=== PATIENT | female | born 1940 | race African-American/Black ===

== ENCOUNTER 2017-10-31 15:01 | Inpatient (IN) | payer OTHER ==
[~2017-10-31] VITALS: Ht 160 cm; Wt 72.8 kg
[~2017-10-31 15:01] MED LIST: SERT25TA; SIMV20TA6; TRAZADONE
[2017-10-31] MEDS ORDERED: NITROGLYCERIN 0.4MG TABLET SL SL PRN (15:30)
[2017-10-31] MEDS ORDERED: ASPIRIN 81MG TABLET PO ONE (15:30)
[2017-10-31 17:03] LABS: BASOPHILS % 0.2 % (0.0-2.0); EOSINOPHILS % 1.1 % (0.0-5.0); HEMATOCRIT. 37.8 % (36.0-48.0); HEMOGLOBIN. 12.5 g/dL (12.0-16.0); MEAN CORPUSCULAR HEMOGLOBIN 29.3 pg (28.0-32.0); MEAN CORPUSCULAR VOLUME 88.9 fL (81.0-99.0); MEAN PLATELET VOLUME 9.8 fl (7.4-10.4); MONOCYTES % 4.9 % (2.0-8.0); NEUTROPHILS % 70.8 % (40.0-76.0); PLATELET 197 x1000/uL (130-400); RED BLOOD CELL COUNT 4.25 mill/uL (4.2-5.4); RED CELL DISTRIBUTION WIDTH 14.8 % (11.6-14.6)
[2017-10-31 17:06] LABS: CHLORIDE 101 mEq/L (98-107)
[2017-10-31] MEDS ORDERED: POTASSIUM CHLORIDE INJ 40 MEQ in DEXT 5% WATER 250 ML IV ONE (17:30)
[2017-10-31] MEDS ORDERED: POTASSIUM CHLORIDE 20MEQ TABLET SR PO ONE (17:30)
[2017-10-31] MEDS ORDERED: DIPHENHYDRAMINE 50MG/ML VIAL IV PRN (20:00)
[2017-10-31] MEDS ORDERED: MAGNESIUM 2 G PREMIX 50 ML IV PRN (20:00)
[2017-10-31] MEDS ORDERED: MECLIZINE 25MG TABLET PO PRN (20:00)
[2017-10-31] MEDS ORDERED: ONDANSETRON HCL 4MG/2ML VIAL IV PRN (20:00)
[2017-10-31] MEDS ORDERED: MAGNESIUM/ALUMINUM HYDROXIDE/SIMETHICONE 30ML UDC PO PRN (20:00)
[2017-10-31] MEDS ORDERED: CLONIDINE 0.1MG TABLET PO PRN (20:00)
[2017-10-31 20:10] VITALS: BP 156/81
[2017-10-31 20:20] VITALS: BP 156/81
[2017-10-31] MEDS ORDERED: ASPI-1159 MT (21:31)
[2017-10-31] MEDS ORDERED: OXYC-515 MT (21:31)
[2017-10-31] MEDS ORDERED: MULT-1146 MT (21:31)
[2017-10-31] MEDS ORDERED: MELO-106 MT (21:31)
[2017-10-31] MEDS ORDERED: SERT-112 MT (21:34)
[2017-10-31] MEDS ORDERED: SIMV40TA5 MT (21:34)
[2017-10-31] MEDS ORDERED: DEXTROSE 50% WATER 50ML SYRINGE IV PRN (21:45)
[2017-10-31] MEDS: ACETAMINOPHEN 325MG TABLET PO PRN (22:21)
[2017-10-31] MEDS: ATORVASTATIN CALCIUM 20MG TABLET PO SCH (22:21)
[2017-10-31] MEDS: SODIUM CHLORIDE 0.9% INJ 3ML FLUSH IVF SCH (22:22)
[2017-10-31] MEDS: ENOXAPARIN 40MG/0.4ML SYR SUBCUT SCH (22:25)
[2017-11-01] VITALS: BP 153/80
[2017-11-01] MEDS: ACETAMINOPHEN 325MG TABLET PO PRN ×2 (03:37→17:30)
[2017-11-01 04:00] VITALS: BP 157/84
[2017-11-01] MEDS ORDERED: PNEUMOCOCCAL 23-VAL P-SAC VAC 0.5 ML IM ONE (06:00)
[2017-11-01] MEDS: BLOOD SUGAR DIAGNOSTIC STRIP TEST SCH ×4 (06:15→21:12)
[2017-11-01] MEDS: INSULIN LISPRO 100 UNITS/ML SUBCUT SCH ×4 (06:15→21:23)
[2017-11-01] MEDS: SODIUM CHLORIDE 0.9% INJ 3ML FLUSH IVF SCH ×3 (06:15→21:24)
[2017-11-01 07:02] LABS: *AMPHETAMINES SCREEN URINE NEGATIVE (NEGATIVE); *BARBITURATES SCREEN URINE NEGATIVE (NEGATIVE); *BENZODIAZEPINES SCREEN URINE NEGATIVE (NEGATIVE); *COCAINE SCREEN URINE NEGATIVE (NEGATIVE)
[2017-11-01 07:03] LABS: CANNABINOID URINE SCREEN NEGATIVE (NEGATIVE); METHADONE URINE SCREEN NEGATIVE (NEGATIVE); OPIATES URINE SCREEN NEGATIVE (NEGATIVE); PHENCYCLIDINE URINE SCREEN NEGATIVE (NEGATIVE)
[2017-11-01 08:00] VITALS: BP_SYST 150; BP_SYST 162; BP_SYST 172; BP_DIAS 80; BP_DIAS 83; BP_DIAS 87
[2017-11-01 08:24] LABS: BASOPHILS % 0.4 % (0.0-2.0); EOSINOPHILS % 1.1 % (0.0-5.0); HEMATOCRIT. 35.3 % (36.0-48.0); HEMOGLOBIN. 11.6 g/dL (12.0-16.0); MEAN CORPUSCULAR HEMOGLOBIN 29.6 pg (28.0-32.0); MEAN CORPUSCULAR VOLUME 89.7 fL (81.0-99.0); MEAN PLATELET VOLUME 9.4 fl (7.4-10.4); MONOCYTES % 6.7 % (2.0-8.0); NEUTROPHILS % 66.8 % (40.0-76.0); PLATELET 185 x1000/uL (130-400); RED BLOOD CELL COUNT 3.93 mill/uL (4.2-5.4); RED CELL DISTRIBUTION WIDTH 14.9 % (11.6-14.6)
[2017-11-01 08:37] LABS: CHLORIDE 105 mEq/L (98-107)
[2017-11-01] MEDS: ASPIRIN 81MG TABLET PO SCH (09:52)
[2017-11-01] MEDS: MELOXICAM 7.5MG TABLET PO SCH (09:53)
[2017-11-01] MEDS: SERTRALINE HCL 100MG TABLET PO SCH (09:53)
[2017-11-01 12:00] VITALS: BP 173/85
[2017-11-01 18:00] VITALS: BP 140/77
[2017-11-01 20:00] VITALS: BP_SYST 135; BP_SYST 172; BP_DIAS 66; BP_DIAS 79
[2017-11-01] MEDS ORDERED: MEDICATION NOT ON FORMULARY EA (Simvastatin 1 TAB) MT SCH (21:00)
[2017-11-01] MEDS: ATORVASTATIN CALCIUM 20MG TABLET PO SCH (21:16)
[2017-11-01] MEDS: ENOXAPARIN 40MG/0.4ML SYR SUBCUT SCH (21:17)
[2017-11-02] VITALS: BP 105/68
[2017-11-02] MEDS: ACETAMINOPHEN 325MG TABLET PO PRN ×2 (00:39→07:05)
[2017-11-02 04:00] VITALS: BP 164/86
[2017-11-02] MEDS: BLOOD SUGAR DIAGNOSTIC STRIP TEST SCH ×3 (06:02→16:55)
[2017-11-02] MEDS: SODIUM CHLORIDE 0.9% INJ 3ML FLUSH IVF SCH ×2 (06:02→16:56)
[2017-11-02] MEDS: INSULIN LISPRO 100 UNITS/ML SUBCUT SCH ×3 (06:18→16:55)
[2017-11-02 08:00] VITALS: BP 178/83
[2017-11-02] MEDS: ASPIRIN 81MG TABLET PO SCH (08:30)
[2017-11-02] MEDS: MELOXICAM 7.5MG TABLET PO SCH (08:30)
[2017-11-02] MEDS: SERTRALINE HCL 100MG TABLET PO SCH (08:31)
[2017-11-02] MEDS ORDERED: HYDROCODONE/ACETAMINOPHEN 5/325MG TABLET PO PRN (11:45)
[2017-11-02 12:00] VITALS: BP 134/68
[2017-11-02 16:00] VITALS: BP 157/86
[2017-11-02 18:39] VITALS: BP 157/86
== END 2017-11-02 19:23 | disposition short-term general hospital (02) | DRG 313 ==
LOC: ER 15:01 → 5WST 17:42 → EDBEDREQ 17:44 → EDBEDREQTM 17:44 → ENRESERV 18:54
PROVIDERS: ADMIT Internal Medicine; ATTEND Internal Medicine
DX: R07.89 Other chest pain (principal); E43 Unspecified severe protein-calorie malnutrition; F32.9 Major depressive disorder, single episode, unspecified; M19.90 Unspecified osteoarthritis, unspecified site; E11.9 Type 2 diabetes mellitus without complications; E78.00 Pure hypercholesterolemia, unspecified; E87.6 Hypokalemia; I11.9 Hypertensive heart disease without heart failure; Z85.828 Personal history of other malignant neoplasm of skin; Z86.73 Personal history of transient ischemic attack (TIA), and cerebral infarction without residual deficits; Z87.891 Personal history of nicotine dependence; Z79.82 Long term (current) use of aspirin; Z91.81 History of falling; Z79.899 Other long term (current) drug therapy; Z79.1 Long term (current) use of non-steroidal anti-inflammatories (NSAID); Z68.28 Body mass index [BMI] 28.0-28.9, adult
CPT/HCPCS: 36415; 71045; 80048; 80053; 80305; 82962; 83036; 83735; 83880; 84443; 84484; 85025; 85610; 90732; 93005; 96365; 97162; 99285; J1650; J1815; J3480; J7040; J7060

== ENCOUNTER 2018-01-05 23:21 | Emergency (ER) | payer OTHER, MEDICARE ==
[~2018-01-05] VITALS: Ht 162.6 cm; Wt 72.0 kg
[~2018-01-05 23:21] MED LIST changes: +ASPI-1159 MT; +MELO-106 MT; +MULT-1146 MT; +OXYC-105 MT; +SERT-112 MT; -SERT25TA; -SIMV20TA6; +SIMV40TA5 MT; -TRAZADONE
[2018-01-06] MEDS ORDERED: TETANUS, DIPHTHERIA, PERTUSSIS VAC/PF 0.5ML (>7YR OLD) IM ONE (00:30)
[2018-01-06] MEDS ORDERED: ACETAMINOPHEN 325MG TABLET PO ONE (00:30)
[2018-01-06] MEDS ORDERED: LIDOCAINE HCL/EPINEPHRINE 1%-EPI 1:100,000 20 ML VIAL INFIL ONE (03:45)
[2018-01-06] MEDS ORDERED: BACITRACIN ZINC OINT UDPKT TOP ONE (05:00)
[2018-01-06 05:25] VITALS: BP 143/71
== END 2018-01-06 05:25 | disposition home or self-care (01) ==
LOC: ER 23:21
DX: S81.822A Laceration with foreign body, left lower leg, initial encounter (principal); W25.XXXA Contact with sharp glass, initial encounter; Y93.89 Activity, other specified; Y92.090 Kitchen in other non-institutional residence as the place of occurrence of the external cause; I10 Essential (primary) hypertension; Z23 Encounter for immunization
CPT/HCPCS: 12002; 73590; 90471; 90715; 99284; J3490

== ENCOUNTER 2018-02-01 21:35 | Emergency (ER) | payer MEDICARE, OTHER ==
[~2018-02-01] VITALS: Ht 170.2 cm; Wt 81.0 kg
[2018-02-01 22:57] LABS: BASOPHILS % 0.1 % (0.0-2.0); HEMOGLOBIN. 12.5 g/dL (12.0-16.0); LYMPHOCYTES % 11.4 % (20.0-50.0); MEAN CORPUSCULAR HEMOGLOBIN 30.1 pg (28.0-32.0); MEAN CORPUSCULAR VOLUME 91.1 fL (81.0-99.0); MEAN PLATELET VOLUME 8.9 fl (7.4-10.4); MONOCYTES % 3.9 % (2.0-8.0); NEUTROPHILS % 82.6 % (40.0-76.0); PLATELET 136 x1000/uL (130-400); RED BLOOD CELL COUNT 4.17 mill/uL (4.2-5.4); RED CELL DISTRIBUTION WIDTH 14.7 % (11.6-14.6)
[2018-02-01 23:00] LABS: CHLORIDE 109 mEq/L (98-107)
[2018-02-01 23:05] LABS: ETHANOL BLOOD < 10 mg/dL
[2018-02-01 23:09] LABS: CREATINE KINASE 121 IU/L (26-192)
[2018-02-02] MEDS ORDERED: KETOROLAC 15MG/ML VIAL IV ONE (00:15)
[2018-02-02 01:00] VITALS: BP 130/72
== END 2018-02-02 01:10 | disposition home or self-care (01) ==
LOC: ER 21:35
DX: G93.49 Other encephalopathy (principal); T40.0X1A Poisoning by opium, accidental (unintentional), initial encounter; E11.9 Type 2 diabetes mellitus without complications; I10 Essential (primary) hypertension; Y92.89 Other specified places as the place of occurrence of the external cause; Z79.82 Long term (current) use of aspirin; Z79.899 Other long term (current) drug therapy; Z91.040 Latex allergy status; Z88.6 Allergy status to analgesic agent
CPT/HCPCS: 36415; 70450; 71045; 80053; 82550; 82962; 84484; 85025; 93005; 96374; 99284; G0482; J1885

== ENCOUNTER 2018-02-23 08:42 | Emergency (ER) | payer MEDICARE, OTHER ==
[~2018-02-23] VITALS: Ht 165.1 cm; Wt 73.0 kg
[2018-02-23] MEDS ORDERED: CLONIDINE 0.1MG TABLET PO ONE (09:45)
[2018-02-23] MEDS ORDERED: MELOXICAM 7.5MG TABLET PO SCH (09:45)
[2018-02-23 10:59] LABS: BASOPHILS % 0.2 % (0.0-2.0); EOSINOPHILS % 0.5 % (0.0-5.0); HEMATOCRIT. 39.4 % (36.0-48.0); HEMOGLOBIN. 12.9 g/dL (12.0-16.0); LYMPHOCYTES % 9.8 % (20.0-50.0); MEAN CORPUSCULAR HEMOGLOBIN 29.2 pg (28.0-32.0); MEAN CORPUSCULAR VOLUME 89.6 fL (81.0-99.0); MEAN PLATELET VOLUME 8.8 fl (7.4-10.4); MONOCYTES % 3.1 % (2.0-8.0); NEUTROPHILS % 86.4 % (40.0-76.0); PLATELET 156 x1000/uL (130-400); RED CELL DISTRIBUTION WIDTH 14.2 % (11.6-14.6)
[2018-02-23 11:04] LABS: CHLORIDE 108 mEq/L (98-107)
[2018-02-23 11:39] LABS: CLARITY URINE CLEAR (CLEAR); COLOR URINE YELLOW (YELLOW); KETONES URINE NEGATIVE (NEGATIVE); LEUKOCYTE ESTERASE URINE NEGATIVE (NEGATIVE); NITRITE URINE NEGATIVE (NEGATIVE); OCCULT BLOOD URINE NEGATIVE (NEGATIVE); PROTEIN URINE 1+ (NEGATIVE); SPECIFIC GRAVITY URINE 1.018 (1.005-1.030); UROBILINOGEN URINE 0.2 E.U./dL (0.2-1.0)
[2018-02-23 11:57] LABS: *AMPHETAMINES SCREEN URINE NEGATIVE (NEGATIVE); *BARBITURATES SCREEN URINE NEGATIVE (NEGATIVE)
[2018-02-23 11:58] LABS: *BENZODIAZEPINES SCREEN URINE NEGATIVE (NEGATIVE); *COCAINE SCREEN URINE NEGATIVE (NEGATIVE); CANNABINOID URINE SCREEN NEGATIVE (NEGATIVE); METHADONE URINE SCREEN NEGATIVE (NEGATIVE); OPIATES URINE SCREEN NEGATIVE (NEGATIVE); PHENCYCLIDINE URINE SCREEN NEGATIVE (NEGATIVE)
[2018-02-23 14:02] VITALS: BP 148/75
== END 2018-02-23 14:19 | disposition short-term general hospital (02) ==
LOC: ER 08:49
DX: R40.4 Transient alteration of awareness (principal); I11.0 Hypertensive heart disease with heart failure; I50.9 Heart failure, unspecified; M94.8X8 Other specified disorders of cartilage, other site; Z79.82 Long term (current) use of aspirin; Z79.899 Other long term (current) drug therapy; Z91.040 Latex allergy status; Z88.6 Allergy status to analgesic agent
CPT/HCPCS: 36415; 71045; 80305; 84484; 93005; 99285

== ENCOUNTER 2018-08-31 19:53 | Inpatient (IN) | payer MEDICARE, OTHER ==
[~2018-08-31] VITALS: Ht 167.6 cm; Wt 110.0 kg
[~2018-08-31 19:53] MED LIST changes: -ASPI-1159 MT; +ASPI-1393 MT
[2018-08-31] MEDS ORDERED: ONDANSETRON HCL 4MG/2ML INJ IV STA (20:20)
[2018-08-31] MEDS ORDERED: SODIUM CHLORIDE 0.9% 1,000 ML IV ONE (20:20)
[2018-08-31 20:51] LABS: BASOPHILS % 0.1 % (0.0-2.0); HEMATOCRIT. 50.2 % (36.0-48.0); HEMOGLOBIN. 15.7 g/dL (12.0-16.0); LYMPHOCYTES % 13.9 % (20.0-50.0); MEAN CORPUSCULAR HEMOGLOBIN 28.4 pg (28.0-32.0); MEAN CORPUSCULAR VOLUME 90.4 fL (81.0-99.0); MEAN PLATELET VOLUME 9.4 fl (7.4-10.4); MONOCYTES % 3.9 % (2.0-8.0); NEUTROPHILS % 82.1 % (40.0-76.0); PLATELET 225 x1000/uL (130-400); RED BLOOD CELL COUNT 5.55 mill/uL (4.2-5.4); RED CELL DISTRIBUTION WIDTH 15.8 % (11.6-14.6)
[2018-08-31 20:57] LABS: CHLORIDE 105 mEq/L (98-107)
[2018-08-31 21:02] LABS: ETHANOL BLOOD < 10 mg/dL
[2018-08-31 21:04] LABS: LDL CHOLESTEROL 66 mg/dL (5-100)
[2018-08-31 21:06] LABS: CREATINE KINASE 72 IU/L (26-192)
[2018-08-31 21:08] LABS: CREATINE KINASE MB FRACTION < 1.0 ng/mL (0.5-3.6)
[2018-08-31 21:09] LABS: D-DIMER 29.66 mg/L FEU (<0.50); INR 1.1; PROTHROMBIN TIME 11.3 sec (9.6-11.0)
[2018-08-31 22:07] LABS: COLOR URINE AMBER (YELLOW); KETONES URINE NEGATIVE (NEGATIVE); LEUKOCYTE ESTERASE URINE NEGATIVE (NEGATIVE); NITRITE URINE NEGATIVE (NEGATIVE); OCCULT BLOOD URINE NEGATIVE (NEGATIVE); PH URINE 5.5 (4.5-8.0); PROTEIN URINE 2+ (NEGATIVE); UROBILINOGEN URINE 0.2 E.U./dL (0.2-1.0)
[2018-08-31 22:09] LABS: CLARITY URINE HAZY (CLEAR)
[2018-08-31 22:30] LABS: *AMPHETAMINES SCREEN URINE NEGATIVE (NEGATIVE); *BARBITURATES SCREEN URINE NEGATIVE (NEGATIVE); *BENZODIAZEPINES SCREEN URINE NEGATIVE (NEGATIVE)
[2018-08-31 22:31] LABS: *COCAINE SCREEN URINE NEGATIVE (NEGATIVE); CANNABINOID URINE SCREEN NEGATIVE (NEGATIVE); METHADONE URINE SCREEN NEGATIVE (NEGATIVE); OPIATES URINE SCREEN PRESUMTIVE POSITIVE (NEGATIVE); PHENCYCLIDINE URINE SCREEN NEGATIVE (NEGATIVE)
[2018-08-31] MEDS ORDERED: ONDANSETRON HCL 4MG/2ML INJ IV PRN (23:45)
[2018-08-31] MEDS ORDERED: DEXTROSE 50% WATER 50ML SYRINGE IV PRN (23:45)
[2018-09-01] VITALS (22 sets, daily range): BP systolic 82–127; BP diastolic 64–93
[2018-09-01] MEDS ORDERED: DEXT 5%/0.45% NACL 1000ML 1,000 ML IV SCH (01:45)
[2018-09-01] MEDS: ACETAMINOPHEN 325MG TABLET PO PRN ×2 (02:04→10:04)
[2018-09-01] MEDS: BLOOD SUGAR DIAGNOSTIC STRIP TEST SCH ×4 (09:00→21:00)
[2018-09-01] MEDS ORDERED: ASPIRIN 81MG EC TABLET PO SCH (09:00)
[2018-09-01] MEDS: INSULIN LISPRO 100 UNITS/ML SUBCUT SCH ×4 (10:42→21:00)
[2018-09-01] MEDS ORDERED: MEPERIDINE HCL/PF 25MG/ML CPJ IV PRN (15:30)
[2018-09-01] MEDS ORDERED: HYDROMORPHONE HCL/PF 2MG/ML CPJ IV PRN (15:30)
[2018-09-01] MEDS ORDERED: POTASSIUM CHLORIDE 20MEQ/PACKET PO NR (16:00)
[2018-09-01] MEDS ORDERED: METRONIDAZOLE 500 MG PREMIX 100 ML IV SCH (16:30)
[2018-09-01] MEDS ORDERED: LIDOCAINE HCL 1% 20ML VIAL (Pyxis) INJ ONE (17:01)
[2018-09-01] MEDS ORDERED: BUPIVACAINE HCL/PF 0.5% (5MG/ML) 10ML ONE (17:02)
[2018-09-01] MEDS ORDERED: BACITRACIN 50,000 UNITS/VIAL ONE ×2 (17:02→18:24)
[2018-09-01] MEDS ORDERED: BUPIVACAINE HCL 0.5% (5MG/ML) 50ML ONE (17:06)
[2018-09-01] MEDS ORDERED: SUCCINYLCHOLINE CHLORIDE 200MG/10ML IV ONE ×2 (17:15→17:21)
[2018-09-01] MEDS ORDERED: ROCURONIUM BROMIDE 10MG/ML VIAL 5ML IV ONE ×2 (17:15→18:48)
[2018-09-01] MEDS ORDERED: FENTANYL CITRATE/PF 50MCG/ML 2ML VIAL ONE (17:16)
[2018-09-01] MEDS ORDERED: PROPOFOL 200MG/20ML VIAL IV ONE (17:17)
[2018-09-01] MEDS ORDERED: LIDOCAINE HCL/PF 1% 10 MG/ML 5ML VIAL ONE (17:17)
[2018-09-01] MEDS ORDERED: PHENYLEPHRINE HCL 10 MG/ML 1ML (IV VIAL) IV ONE ×2 (17:18→19:04)
[2018-09-01] MEDS ORDERED: ETOMIDATE 2MG/ML 10ML VIAL IV ONE (17:37)
[2018-09-01] MEDS ORDERED: PIPERACILLIN/TAZ 2.25G PREMIX 50 ML IV SCH (18:00)
[2018-09-01] MEDS ORDERED: KCL 20MEQ/100ML PREMIX 100 ML IV NR (18:00)
[2018-09-01] MEDS ORDERED: LEVOFLOXACIN 500MG PREMIX 100 ML IV ONE (18:53)
[2018-09-01] MEDS ORDERED: DEXT 5%/0.45% NACL KCL 20MEQ/L 1,000 ML IV SCH (19:02)
[2018-09-01] MEDS ORDERED: ONDANSETRON HCL 4MG/2ML INJ IV PRN (19:15)
[2018-09-01] MEDS ORDERED: MORPHINE SULFATE 2 MG/ML CPJ (NOT FOR IM USE) IV PRN (19:15)
[2018-09-01] MEDS ORDERED: METRONIDAZOLE 500 MG PREMIX 100 ML IV NR (20:00)
[2018-09-01 20:58] LABS: BG BASE EXCESS -16.6 mmol/L (-2.0-2.0); BG CARBOXYHEMOGLOBIN 0.7 % (0.5-1.5); BG DEOXYHEMOGLOBIN 4.4 % (0.0-5.0); BG FRACTION INSPIRED OXYGEN 60; BG HCO3 ACT 14.1 mmol/L (22.0-26.0); BG METHEMOGLOBIN 0.3 % (0.0-1.5); BG OXYGEN SATURATION 95.6 % (92.0-98.5); BG OXYHEMOGLOBIN 94.6 % (94.0-97.0); BG PEEP (cmH2O) 0 cmH2O; BG PH 7.044 (7.350-7.450); BG PIP 29 cmH2O; BG PO2 103.8 mmHg (75.0-100.0); BG SAMPLE SITE A-LINE; BG TIDAL VOLUME(mL) 500 mL; BG TOTAL HEMOGLOBIN 14.4 g/dL (12.0-18.0); BG VENT MODE VENT - A/C; BG VENT RATE 14 set
[2018-09-01] MEDS ORDERED: ATORVASTATIN CALCIUM 20MG TABLET PO SCH (21:00)
[2018-09-01] MEDS ORDERED: LEVOFLOXACIN 500MG PREMIX 100 ML IV SCH (21:00)
[2018-09-01] MEDS ORDERED: SODIUM BICARBONATE 8.4% 1 MEQ/ML 50ML SYR IV NR (21:30)
[2018-09-01] MEDS: FAMOTIDINE 20MG/2ML VIAL IV SCH (22:17)
[2018-09-01] MEDS: METRONIDAZOLE 500 MG PREMIX 100 ML IV SCH (22:20)
[2018-09-01 23:46] LABS: BG BASE EXCESS -11.8 mmol/L (-2.0-2.0); BG CARBOXYHEMOGLOBIN 0.8 % (0.5-1.5); BG DEOXYHEMOGLOBIN 3.5 % (0.0-5.0); BG FRACTION INSPIRED OXYGEN 60; BG HCO3 ACT 17.1 mmol/L (22.0-26.0); BG METHEMOGLOBIN 0.4 % (0.0-1.5); BG OXYGEN SATURATION 96.5 % (92.0-98.5); BG OXYHEMOGLOBIN 95.3 % (94.0-97.0); BG PCO2 49.7 mmHg (35.0-45.0); BG PH 7.154 (7.350-7.450); BG PO2 97.5 mmHg (75.0-100.0); BG SAMPLE SITE A-LINE; BG TIDAL VOLUME(mL) 500 mL; BG TOTAL HEMOGLOBIN 15.7 g/dL (12.0-18.0); BG VENT MODE VENT - A/C; BG VENT RATE 14 set
[2018-09-02] VITALS (101 sets, daily range): BP systolic 53–170; BP diastolic 30–130
[2018-09-02] MEDS ORDERED: IPRATROPIUM/ALBUTEROL 0.5-3(2.5)MG/3ML NEB ONE (00:27)
[2018-09-02] MEDS ORDERED: [UNRECOGNIZED DRUG - OTHER] IV SCH (01:00)
[2018-09-02] MEDS ORDERED: POTASSIUM CHLORIDE IV SCH (01:00)
[2018-09-02] MEDS ORDERED: SODIUM BICARBONATE IV SCH (01:00)
[2018-09-02] MEDS ORDERED: SODIUM CHLORIDE 0.9% 1,000 ML IV SCH ×2 (03:15→14:45)
[2018-09-02] MEDS: METRONIDAZOLE 500 MG PREMIX 100 ML IV SCH ×2 (04:41→11:33)
[2018-09-02 05:39] LABS: CHLORIDE 116 mEq/L (98-107)
[2018-09-02 05:41] LABS: HEMATOCRIT. 42.7 % (36.0-48.0); HEMOGLOBIN. 13.8 g/dL (12.0-16.0); MEAN CORPUSCULAR HEMOGLOBIN 28.4 pg (28.0-32.0); MEAN CORPUSCULAR VOLUME 88.3 fL (81.0-99.0); MEAN PLATELET VOLUME 10.3 fl (7.4-10.4); PLATELET 173 x1000/uL (130-400); RED BLOOD CELL COUNT 4.84 mill/uL (4.2-5.4)
[2018-09-02 05:45] LABS: PHOSPHORUS 4.6 mg/dL (2.5-4.9)
[2018-09-02] MEDS: BLOOD SUGAR DIAGNOSTIC STRIP TEST SCH ×4 (05:58→20:32)
[2018-09-02] MEDS: INSULIN LISPRO 100 UNITS/ML SUBCUT SCH ×4 (05:59→20:32)
[2018-09-02] MEDS ORDERED: IPRATROPIUM/ALBUTEROL 0.5-3(2.5)MG/3ML NEB HHN SCH (06:00)
[2018-09-02] MEDS: NOREPINEPHRINE 16 MG in DEXT 5% WATER 234 ML IV PRN (06:06)
[2018-09-02 07:47] LABS: BG BASE EXCESS -10.4 mmol/L (-2.0-2.0); BG CARBOXYHEMOGLOBIN 1.1 % (0.5-1.5); BG DEOXYHEMOGLOBIN 7.8 % (0.0-5.0); BG METHEMOGLOBIN 0.2 % (0.0-1.5); BG OXYGEN SATURATION 92.1 % (92.0-98.5); BG OXYHEMOGLOBIN 90.9 % (94.0-97.0); BG PCO2 42.5 mmHg (35.0-45.0); BG PH 7.219 (7.350-7.450); BG PO2 65.1 mmHg (75.0-100.0); BG SAMPLE SITE A-LINE; BG TIDAL VOLUME(mL) 500 mL; BG TOTAL HEMOGLOBIN 16.1 g/dL (12.0-18.0); BG VENT MODE VENT - A/C; BG VENT RATE 16 set
[2018-09-02] MEDS: IPRATROPIUM/ALBUTEROL 0.5-3(2.5)MG/3ML NEB HHN SCH ×3 (07:54→20:17)
[2018-09-02] MEDS ORDERED: PROPOFOL 10MG/ML 100ML 100 ML IV PRN (08:00)
[2018-09-02] MEDS ORDERED: SODIUM BICARBONATE 8.4% 1 MEQ/ML 50ML SYR IV NR (08:00)
[2018-09-02] MEDS ORDERED: SODIUM CHLORIDE 0.9% 500 ML IV ONE (08:30)
[2018-09-02] MEDS ORDERED: LIDOCAINE HCL 1% 20ML VIAL (Pyxis) INJ ONE (08:39)
[2018-09-02] MEDS: CEFEPIME 1,000 MG in DEXTROSE 5% WATER 50 ML IV SCH (08:59)
[2018-09-02] MEDS ORDERED: ALBUMIN HUMAN 12.5GM/50ML (25%) IV NR (09:00)
[2018-09-02] MEDS ORDERED: ENOXAPARIN 40MG/0.4ML SYR SUBCUT SCH (09:00)
[2018-09-02] MEDS: FAMOTIDINE 20MG/2ML VIAL IV SCH (09:59)
[2018-09-02] MEDS: FENTANYL CITRATE/PF 500 MCG in SODIUM CHLORIDE 0.9% 40 ML IV PRN ×3 (10:14→20:39)
[2018-09-02 10:32] LABS: PLATELET ESTIMATE NORMAL
[2018-09-02 12:13] LABS: BG BASE EXCESS -11.7 mmol/L (-2.0-2.0); BG CARBOXYHEMOGLOBIN 0.3 % (0.5-1.5); BG DEOXYHEMOGLOBIN 4.9 % (0.0-5.0); BG HCO3 ACT 13.4 mmol/L (22.0-26.0); BG METHEMOGLOBIN 0.1 % (0.0-1.5); BG OXYGEN SATURATION 95.1 % (92.0-98.5); BG OXYHEMOGLOBIN 94.7 % (94.0-97.0); BG PH 7.283 (7.350-7.450); BG PO2 76.6 mmHg (75.0-100.0); BG SAMPLE SITE A-LINE; BG TIDAL VOLUME(mL) 500 mL; BG TOTAL HEMOGLOBIN 14.2 g/dL (12.0-18.0); BG VENT MODE VENT - A/C; BG VENT RATE 22 set
[2018-09-02] MEDS: SODIUM BICARBONATE IV SCH (14:26)
[2018-09-02] MEDS: POTASSIUM CHLORIDE IV SCH (14:26)
[2018-09-02] MEDS: [UNRECOGNIZED DRUG - OTHER] IV SCH (14:26)
[2018-09-02] MEDS: PANTOPRAZOLE SODIUM 40 MG/VIAL IV SCH ×2 (15:34→20:33)
[2018-09-02] MEDS ORDERED: MAGNESIUM 2 G PREMIX 50 ML IV SCH (16:00)
[2018-09-03] VITALS (102 sets, daily range): BP systolic 81–138; BP diastolic 39–74
[2018-09-03] MEDS: IPRATROPIUM/ALBUTEROL 0.5-3(2.5)MG/3ML NEB HHN SCH ×2 (01:24→08:05)
[2018-09-03] MEDS: [UNRECOGNIZED DRUG - OTHER] IV SCH (01:56)
[2018-09-03] MEDS: POTASSIUM CHLORIDE IV SCH (01:56)
[2018-09-03] MEDS: SODIUM BICARBONATE IV SCH (01:56)
[2018-09-03] MEDS: FENTANYL CITRATE/PF 500 MCG in SODIUM CHLORIDE 0.9% 40 ML IV PRN ×2 (02:43→08:56)
[2018-09-03 05:17] LABS: EOSINOPHILS % 0.1 % (0.0-5.0); HEMATOCRIT. 37.2 % (36.0-48.0); HEMOGLOBIN. 11.9 g/dL (12.0-16.0); LYMPHOCYTES % 8.6 % (20.0-50.0); MEAN CORPUSCULAR HEMOGLOBIN 28.3 pg (28.0-32.0); MEAN CORPUSCULAR VOLUME 88.7 fL (81.0-99.0); MONOCYTES % 5.9 % (2.0-8.0); NEUTROPHILS % 85.4 % (40.0-76.0); RED BLOOD CELL COUNT 4.19 mill/uL (4.2-5.4); RED CELL DISTRIBUTION WIDTH 16.8 % (11.6-14.6)
[2018-09-03 05:18] LABS: CHLORIDE 111 mEq/L (98-107)
[2018-09-03 05:25] LABS: PHOSPHORUS 3.9 mg/dL (2.5-4.9)
[2018-09-03] MEDS: BLOOD SUGAR DIAGNOSTIC STRIP TEST SCH ×3 (06:28→16:35)
[2018-09-03] MEDS: INSULIN LISPRO 100 UNITS/ML SUBCUT SCH ×3 (06:28→16:42)
[2018-09-03 08:12] LABS: PLATELET 158 x1000/uL (130-400)
[2018-09-03 08:28] LABS: BG BASE EXCESS -7.2 mmol/L (-2.0-2.0); BG CARBOXYHEMOGLOBIN 0.4 % (0.5-1.5); BG DEOXYHEMOGLOBIN 4.9 % (0.0-5.0); BG FRACTION INSPIRED OXYGEN 60; BG HCO3 ACT 16.3 mmol/L (22.0-26.0); BG METHEMOGLOBIN 0.2 % (0.0-1.5); BG OXYGEN SATURATION 95.1 % (92.0-98.5); BG OXYHEMOGLOBIN 94.5 % (94.0-97.0); BG PCO2 27.5 mmHg (35.0-45.0); BG PH 7.392 (7.350-7.450); BG PO2 76.8 mmHg (75.0-100.0); BG SAMPLE SITE A-LINE; BG TIDAL VOLUME(mL) 500 mL; BG TOTAL HEMOGLOBIN 12.1 g/dL (12.0-18.0); BG VENT MODE VENT - A/C; BG VENT RATE 22 set
[2018-09-03] MEDS: ENOXAPARIN 30MG/0.3ML SYR SUBCUT SCH (09:00)
[2018-09-03] MEDS: PANTOPRAZOLE SODIUM 40 MG/VIAL IV SCH ×2 (09:10→20:54)
[2018-09-03] MEDS: CEFEPIME 1,000 MG in DEXTROSE 5% WATER 50 ML IV SCH (09:10)
[2018-09-03] MEDS: ACETAMINOPHEN 650MG SUPP PR PRN (09:11)
[2018-09-03] MEDS ORDERED: METRONIDAZOLE 500 MG PREMIX 100 ML IV SCH (10:30)
[2018-09-03] MEDS ORDERED: MIDAZOLAM HCL 100 MG in DEXT 5% WATER 80 ML IV PRN (11:00)
[2018-09-03] MEDS ORDERED: MEROPENEM 1,000 MG in SODIUM CHLORIDE 0.9% 100 ML IV SCH (11:00)
[2018-09-03] MEDS: SODIUM BICARBONATE 100 MEQ in SODIUM CHLORIDE 0.45% 1,000 ML IV SCH ×2 (11:15→17:16)
[2018-09-03 13:08] LABS: CLARITY URINE CLOUDY (CLEAR); KETONES URINE TRACE (NEGATIVE); LEUKOCYTE ESTERASE URINE 1+ (NEGATIVE); NITRITE URINE POSITIVE (NEGATIVE); OCCULT BLOOD URINE 3+ (NEGATIVE); PROTEIN URINE 4+ (NEGATIVE); SPECIFIC GRAVITY URINE 1.027 (1.005-1.030)
[2018-09-03 13:11] LABS: COLOR URINE AMBER (YELLOW)
[2018-09-03] MEDS ORDERED: FENTANYL CITRATE/PF 1,000 MCG in SODIUM CHLORIDE 0.9% 80 ML IV PRN (13:30)
[2018-09-03] MEDS ORDERED: LIDOCAINE HCL 1% 20ML VIAL (Pyxis) INJ ONE (13:44)
[2018-09-03] MEDS: IPRATROPIUM BROMIDE (0.02%) 0.5MG/2.5ML NEB HHN SCH ×2 (14:46→20:04)
[2018-09-03] MEDS: MICAFUNGIN 100 MG in SODIUM CHLORIDE 0.9% 100 ML IV SCH (15:07)
[2018-09-03] MEDS ORDERED: MANNITOL 12.5G (25%) VIAL 50ML IV NR (17:00)
[2018-09-03] MEDS ORDERED: HEPARIN SODIUM 1,000 UNIT/1ML VIAL IV NR (19:45)
[2018-09-03] MEDS ORDERED: DILTIAZEM HCL 5MG/ML 5ML VIAL IV NR (20:30)
[2018-09-03] MEDS ORDERED: SODIUM CHLORIDE 0.9% 100 ML IV ONE (20:45)
[2018-09-03] MEDS: SODIUM CHLORIDE 0.9% 1,000 ML IV SCH (21:06)
[2018-09-03 21:51] LABS: PHOSPHORUS 3.6 mg/dL (2.5-4.9)
[2018-09-03] MEDS ORDERED: CALCIUM GLUCONATE IV NR (22:00)
[2018-09-03] MEDS ORDERED: WATER IV NR (22:00)
[2018-09-03] MEDS ORDERED: DEXT 5% IV NR (22:00)
[2018-09-04] VITALS (105 sets, daily range): BP systolic 63–165; BP diastolic 24–104
[2018-09-04] MEDS: BLOOD SUGAR DIAGNOSTIC STRIP TEST SCH ×5 (00:27→23:41)
[2018-09-04] MEDS ORDERED: MEROPENEM 500MG in NORMAL SALINE 50ML IV SCH (01:00)
[2018-09-04] MEDS: IPRATROPIUM BROMIDE (0.02%) 0.5MG/2.5ML NEB HHN SCH ×3 (02:06→13:04)
[2018-09-04 05:15] LABS: HEMATOCRIT. 31.8 % (36.0-48.0); HEMOGLOBIN. 10.4 g/dL (12.0-16.0); MEAN CORPUSCULAR HEMOGLOBIN 28.4 pg (28.0-32.0); MEAN CORPUSCULAR VOLUME 86.7 fL (81.0-99.0); RED BLOOD CELL COUNT 3.67 mill/uL (4.2-5.4); RED CELL DISTRIBUTION WIDTH 16.5 % (11.6-14.6)
[2018-09-04] MEDS: INSULIN LISPRO 100 UNITS/ML SUBCUT SCH ×4 (05:17→17:26)
[2018-09-04 05:34] LABS: CHLORIDE 105 mEq/L (98-107)
[2018-09-04 05:48] LABS: PHOSPHORUS 4.3 mg/dL (2.5-4.9)
[2018-09-04 06:16] LABS: CREATINE KINASE 5798 IU/L (26-192)
[2018-09-04 08:27] LABS: BG BASE EXCESS -5.6 mmol/L (-2.0-2.0); BG CARBOXYHEMOGLOBIN 0.3 % (0.5-1.5); BG DEOXYHEMOGLOBIN 2.4 % (0.0-5.0); BG FRACTION INSPIRED OXYGEN 60; BG HCO3 ACT 19.3 mmol/L (22.0-26.0); BG METHEMOGLOBIN 0.3 % (0.0-1.5); BG OXYGEN SATURATION 97.6 % (92.0-98.5); BG PCO2 35.5 mmHg (35.0-45.0); BG PH 7.353 (7.350-7.450); BG PO2 109.8 mmHg (75.0-100.0); BG SAMPLE SITE LEFT RADIAL; BG TIDAL VOLUME(mL) 500 mL; BG TOTAL HEMOGLOBIN 11.3 g/dL (12.0-18.0); BG VENT MODE VENT - A/C; BG VENT RATE 22 set
[2018-09-04] MEDS: PANTOPRAZOLE SODIUM 40 MG/VIAL IV SCH ×2 (09:38→21:19)
[2018-09-04] MEDS: ENOXAPARIN 30MG/0.3ML SYR SUBCUT SCH (09:40)
[2018-09-04] MEDS ORDERED: WATER IV NR (12:00)
[2018-09-04] MEDS ORDERED: CALCIUM GLUCONATE IV NR (12:00)
[2018-09-04] MEDS ORDERED: DEXTROSE 5% IV NR (12:00)
[2018-09-04 12:14] LABS: PLATELET ESTIMATE DECREASED
[2018-09-04] MEDS: ESMOLOL 2500MG PREMIX 250 ML IV SCH ×2 (13:00→21:20)
[2018-09-04] MEDS: NOREPINEPHRINE 16 MG in DEXT 5% WATER 234 ML IV PRN (13:22)
[2018-09-04 13:41] LABS: BG BASE EXCESS -6.9 mmol/L (-2.0-2.0); BG CARBOXYHEMOGLOBIN 0.4 % (0.5-1.5); BG DEOXYHEMOGLOBIN 2.8 % (0.0-5.0); BG FRACTION INSPIRED OXYGEN 60; BG HCO3 ACT 17.8 mmol/L (22.0-26.0); BG METHEMOGLOBIN 0.2 % (0.0-1.5); BG OXYGEN SATURATION 97.2 % (92.0-98.5); BG OXYHEMOGLOBIN 96.6 % (94.0-97.0); BG PCO2 32.9 mmHg (35.0-45.0); BG PO2 94.2 mmHg (75.0-100.0); BG SAMPLE SITE LEFT RADIAL; BG TIDAL VOLUME(mL) 500 mL; BG TOTAL HEMOGLOBIN 12.4 g/dL (12.0-18.0); BG VENT MODE VENT - A/C; BG VENT RATE 22 set
[2018-09-04] MEDS: MICAFUNGIN 100 MG in SODIUM CHLORIDE 0.9% 100 ML IV SCH (14:48)
[2018-09-04] MEDS: SODIUM CHLORIDE 0.9% 1,000 ML IV SCH (17:26)
[2018-09-04] MEDS: MEROPENEM 500MG in NORMAL SALINE 50ML IV SCH (17:31)
[2018-09-04 18:11] LABS: BG BASE EXCESS -7.3 mmol/L (-2.0-2.0); BG CARBOXYHEMOGLOBIN 0.8 % (0.5-1.5); BG DEOXYHEMOGLOBIN 2.9 % (0.0-5.0); BG FRACTION INSPIRED OXYGEN 60; BG HCO3 ACT 17.7 mmol/L (22.0-26.0); BG METHEMOGLOBIN 0.1 % (0.0-1.5); BG OXYGEN SATURATION 97.1 % (92.0-98.5); BG OXYHEMOGLOBIN 96.2 % (94.0-97.0); BG PCO2 34.1 mmHg (35.0-45.0); BG PH 7.332 (7.350-7.450); BG PO2 98.3 mmHg (75.0-100.0); BG SAMPLE SITE LEFT RADIAL; BG TIDAL VOLUME(mL) 500 mL; BG VENT MODE VENT - A/C; BG VENT RATE 22 set
[2018-09-04] MEDS ORDERED: IPRATROPIUM/ALBUTEROL 0.5-3(2.5)MG/3ML NEB ONE (20:02)
[2018-09-05] VITALS (120 sets, daily range): BP systolic 58–157; BP diastolic 16–113
[2018-09-05] MEDS: IPRATROPIUM BROMIDE (0.02%) 0.5MG/2.5ML NEB HHN SCH ×4 (01:52→19:55)
[2018-09-05 04:49] LABS: HEMATOCRIT. 37.4 % (36.0-48.0); MEAN CORPUSCULAR HEMOGLOBIN 27.9 pg (28.0-32.0); MEAN CORPUSCULAR VOLUME 86.9 fL (81.0-99.0); RED CELL DISTRIBUTION WIDTH 16.7 % (11.6-14.6)
[2018-09-05 04:58] LABS: CHLORIDE 106 mEq/L (98-107)
[2018-09-05 05:56] LABS: CREATINE KINASE 4722 IU/L (26-192)
[2018-09-05] MEDS: INSULIN LISPRO 100 UNITS/ML SUBCUT SCH ×5 (06:00→23:45)
[2018-09-05] MEDS: BLOOD SUGAR DIAGNOSTIC STRIP TEST SCH ×4 (06:03→23:45)
[2018-09-05] MEDS: NOREPINEPHRINE 16 MG in DEXT 5% WATER 234 ML IV PRN (06:29)
[2018-09-05 07:05] LABS: PLATELET ESTIMATE DECREASED
[2018-09-05 07:07] LABS: PLATELET 94 x1000/uL (130-400)
[2018-09-05] MEDS: PANTOPRAZOLE SODIUM 40 MG/VIAL IV SCH ×2 (08:12→21:45)
[2018-09-05 08:25] LABS: BG CARBOXYHEMOGLOBIN 0.7 % (0.5-1.5); BG DEOXYHEMOGLOBIN 1.2 % (0.0-5.0); BG FRACTION INSPIRED OXYGEN 60; BG HCO3 ACT 19.2 mmol/L (22.0-26.0); BG METHEMOGLOBIN 0.2 % (0.0-1.5); BG OXYGEN SATURATION 98.8 % (92.0-98.5); BG OXYHEMOGLOBIN 97.9 % (94.0-97.0); BG PCO2 36.7 mmHg (35.0-45.0); BG PH 7.336 (7.350-7.450); BG PO2 148.8 mmHg (75.0-100.0); BG SAMPLE SITE LEFT RADIAL; BG TIDAL VOLUME(mL) 500 mL; BG TOTAL HEMOGLOBIN 13.2 g/dL (12.0-18.0); BG VENT MODE VENT - A/C; BG VENT RATE 22 set
[2018-09-05] MEDS: ENOXAPARIN 30MG/0.3ML SYR SUBCUT SCH (09:00)
[2018-09-05] MEDS ORDERED: CALCIUM GLUCONATE 4,000 MG in DEXT 5% WATER 250 ML IV NR (11:00)
[2018-09-05] MEDS ORDERED: MANNITOL 12.5G (25%) VIAL 50ML IV NR (12:30)
[2018-09-05] MEDS: SODIUM CHLORIDE 0.9% 1,000 ML IV SCH (13:56)
[2018-09-05] MEDS: ESMOLOL 2500MG PREMIX 250 ML IV SCH (14:23)
[2018-09-05] MEDS: MICAFUNGIN 100 MG in SODIUM CHLORIDE 0.9% 100 ML IV SCH (15:56)
[2018-09-05] MEDS: MEROPENEM 500MG in NORMAL SALINE 50ML IV SCH (18:14)
[2018-09-05] MEDS: PHENYLEPHRINE 20 MG in DEXT 5% WATER 248 ML IV PRN (21:56)
[2018-09-06] VITALS (96 sets, daily range): BP systolic 50–178; BP diastolic 29–116
[2018-09-06] MEDS: IPRATROPIUM BROMIDE (0.02%) 0.5MG/2.5ML NEB HHN SCH ×4 (02:02→20:00)
[2018-09-06] MEDS: ESMOLOL 2500MG PREMIX 250 ML IV SCH (02:59)
[2018-09-06] MEDS: PHENYLEPHRINE 20 MG in DEXT 5% WATER 248 ML IV PRN ×6 (03:36→22:48)
[2018-09-06 05:22] LABS: HEMATOCRIT. 34.6 % (36.0-48.0); HEMOGLOBIN. 11.2 g/dL (12.0-16.0); MEAN CORPUSCULAR VOLUME 86.6 fL (81.0-99.0); MEAN PLATELET VOLUME 10.2 fl (7.4-10.4); PLATELET 98 x1000/uL (130-400); RED BLOOD CELL COUNT 3.99 mill/uL (4.2-5.4); RED CELL DISTRIBUTION WIDTH 16.9 % (11.6-14.6)
[2018-09-06] MEDS: BLOOD SUGAR DIAGNOSTIC STRIP TEST SCH ×4 (05:31→23:32)
[2018-09-06] MEDS: INSULIN LISPRO 100 UNITS/ML SUBCUT SCH ×3 (05:31→18:00)
[2018-09-06 08:29] LABS: BG CARBOXYHEMOGLOBIN 0.9 % (0.5-1.5); BG DEOXYHEMOGLOBIN 1.6 % (0.0-5.0); BG FRACTION INSPIRED OXYGEN 40; BG HCO3 ACT 21.7 mmol/L (22.0-26.0); BG METHEMOGLOBIN 0.1 % (0.0-1.5); BG OXYGEN SATURATION 98.4 % (92.0-98.5); BG OXYHEMOGLOBIN 97.4 % (94.0-97.0); BG PCO2 33.7 mmHg (35.0-45.0); BG PH 7.427 (7.350-7.450); BG PO2 108.4 mmHg (75.0-100.0); BG SAMPLE SITE LEFT RADIAL; BG TIDAL VOLUME(mL) 500 mL; BG TOTAL HEMOGLOBIN 11.4 g/dL (12.0-18.0); BG VENT MODE VENT - A/C; BG VENT RATE 22 set
[2018-09-06] MEDS: SODIUM CHLORIDE 0.9% 1,000 ML IV SCH (10:18)
[2018-09-06] MEDS: PANTOPRAZOLE SODIUM 40 MG/VIAL IV SCH ×2 (10:18→20:39)
[2018-09-06 10:36] LABS: PLATELET ESTIMATE DECREASED
[2018-09-06] MEDS: MICAFUNGIN 100 MG in SODIUM CHLORIDE 0.9% 100 ML IV SCH (14:55)
[2018-09-06 14:56] LABS: HEPATITIS B SURFACE ANTIGEN NEGATIVE
[2018-09-06] MEDS: MEROPENEM 500MG in NORMAL SALINE 50ML IV SCH (18:42)
[2018-09-07] VITALS (99 sets, daily range): BP systolic 55–152; BP diastolic 22–119
[2018-09-07] MEDS: INSULIN LISPRO 100 UNITS/ML SUBCUT SCH ×4 (00:10→18:00)
[2018-09-07] MEDS: IPRATROPIUM BROMIDE (0.02%) 0.5MG/2.5ML NEB HHN SCH ×4 (00:12→20:44)
[2018-09-07] MEDS: PHENYLEPHRINE 40 MG in DEXT 5% WATER 496 ML IV PRN ×2 (01:01→05:44)
[2018-09-07] MEDS: NOREPINEPHRINE 16 MG in DEXT 5% WATER 234 ML IV PRN ×2 (01:32→22:55)
[2018-09-07] MEDS: BLOOD SUGAR DIAGNOSTIC STRIP TEST SCH ×3 (05:34→18:10)
[2018-09-07 05:35] LABS: HEMATOCRIT. 35.6 % (36.0-48.0); HEMOGLOBIN. 11.5 g/dL (12.0-16.0); MEAN CORPUSCULAR HEMOGLOBIN 27.7 pg (28.0-32.0); MEAN CORPUSCULAR VOLUME 85.9 fL (81.0-99.0); MEAN PLATELET VOLUME 10.6 fl (7.4-10.4); PLATELET 98 x1000/uL (130-400); RED BLOOD CELL COUNT 4.15 mill/uL (4.2-5.4)
[2018-09-07] MEDS: SODIUM CHLORIDE 0.9% 1,000 ML IV SCH (05:44)
[2018-09-07 05:59] LABS: PHOSPHORUS 3.6 mg/dL (2.5-4.9)
[2018-09-07 08:07] LABS: BG BASE EXCESS -4.9 mmol/L (-2.0-2.0); BG CARBOXYHEMOGLOBIN 0.3 % (0.5-1.5); BG DEOXYHEMOGLOBIN 2.5 % (0.0-5.0); BG HCO3 ACT 19.6 mmol/L (22.0-26.0); BG METHEMOGLOBIN 0.1 % (0.0-1.5); BG OXYGEN SATURATION 97.5 % (92.0-98.5); BG OXYHEMOGLOBIN 97.1 % (94.0-97.0); BG PCO2 34.1 mmHg (35.0-45.0); BG PH 7.377 (7.350-7.450); BG PO2 106.9 mmHg (75.0-100.0); BG SAMPLE SITE RIGHT RADIAL; BG TIDAL VOLUME(mL) 500 mL; BG TOTAL HEMOGLOBIN 11.3 g/dL (12.0-18.0); BG VENT MODE VENT - A/C; BG VENT RATE 22 set
[2018-09-07] MEDS ORDERED: LIDOCAINE HCL/PF 1% 2ML VIAL ONE (08:27)
[2018-09-07] MEDS ORDERED: PHENYLEPHRINE 80 MG in DEXT 5% WATER 496 ML IV PRN (10:08)
[2018-09-07] MEDS: PANTOPRAZOLE SODIUM 40 MG/VIAL IV SCH ×2 (10:13→21:09)
[2018-09-07] MEDS ORDERED: ALBUMIN HUMAN 25GM/100ML (25%) IV NR (10:15)
[2018-09-07] MEDS ORDERED: PHENYLEPHRINE 80 MG in DEXT 5% WATER 492 ML IV PRN (11:00)
[2018-09-07] MEDS: MICAFUNGIN 100 MG in SODIUM CHLORIDE 0.9% 100 ML IV SCH (15:44)
[2018-09-07 16:35] LABS: PLATELET ESTIMATE DECREASED
[2018-09-07] MEDS: MEROPENEM 500MG in NORMAL SALINE 50ML IV SCH (18:11)
[2018-09-07] MEDS: ESMOLOL 2500MG PREMIX 250 ML IV SCH (22:54)
[2018-09-08] VITALS (95 sets, daily range): BP systolic 71–146; BP diastolic 40–103
[2018-09-08] MEDS: BLOOD SUGAR DIAGNOSTIC STRIP TEST SCH ×4 (00:33→17:51)
[2018-09-08] MEDS: SODIUM CHLORIDE 0.9% 1,000 ML IV SCH ×2 (00:35→20:00)
[2018-09-08] MEDS: IPRATROPIUM BROMIDE (0.02%) 0.5MG/2.5ML NEB HHN SCH ×4 (02:31→20:18)
[2018-09-08 05:15] LABS: HEMATOCRIT. 31.3 % (36.0-48.0); HEMOGLOBIN. 10.1 g/dL (12.0-16.0); MEAN CORPUSCULAR HEMOGLOBIN 27.6 pg (28.0-32.0); MEAN CORPUSCULAR VOLUME 85.3 fL (81.0-99.0); PLATELET 87 x1000/uL (130-400); RED BLOOD CELL COUNT 3.67 mill/uL (4.2-5.4); RED CELL DISTRIBUTION WIDTH 16.7 % (11.6-14.6)
[2018-09-08] MEDS: INSULIN LISPRO 100 UNITS/ML SUBCUT SCH ×4 (06:00→17:51)
[2018-09-08] MEDS: PANTOPRAZOLE SODIUM 40 MG/VIAL IV SCH ×2 (08:16→20:00)
[2018-09-08] MEDS: ESMOLOL 2500MG PREMIX 250 ML IV SCH (12:27)
[2018-09-08] MEDS: MICAFUNGIN 100 MG in SODIUM CHLORIDE 0.9% 100 ML IV SCH (14:38)
[2018-09-08] MEDS ORDERED: DEXTROSE 5% IV NR (16:00)
[2018-09-08] MEDS ORDERED: WATER IV NR (16:00)
[2018-09-08] MEDS ORDERED: CALCIUM GLUCONATE IV NR (16:00)
[2018-09-08 18:13] LABS: PLATELET ESTIMATE DECREASED
[2018-09-08] MEDS: MEROPENEM 500MG in NORMAL SALINE 50ML IV SCH (18:14)
[2018-09-08] MEDS: DIPHENHYDRAMINE 50MG/ML VIAL IV PRN (19:58)
[2018-09-09] VITALS (93 sets, daily range): BP systolic 76–153; BP diastolic 46–96
[2018-09-09] MEDS: BLOOD SUGAR DIAGNOSTIC STRIP TEST SCH ×4 (00:46→17:36)
[2018-09-09] MEDS: NOREPINEPHRINE 16 MG in DEXT 5% WATER 234 ML IV PRN (00:48)
[2018-09-09] MEDS: IPRATROPIUM BROMIDE (0.02%) 0.5MG/2.5ML NEB HHN SCH ×4 (02:04→21:25)
[2018-09-09 05:46] LABS: HEMATOCRIT. 32.4 % (36.0-48.0); HEMOGLOBIN. 10.3 g/dL (12.0-16.0); MEAN CORPUSCULAR HEMOGLOBIN 27.5 pg (28.0-32.0); MEAN CORPUSCULAR VOLUME 86.1 fL (81.0-99.0); MEAN PLATELET VOLUME 10.2 fl (7.4-10.4); PLATELET 96 x1000/uL (130-400); RED BLOOD CELL COUNT 3.77 mill/uL (4.2-5.4); RED CELL DISTRIBUTION WIDTH 17.1 % (11.6-14.6)
[2018-09-09] MEDS: INSULIN LISPRO 100 UNITS/ML SUBCUT SCH ×4 (06:00→18:00)
[2018-09-09] MEDS: ESMOLOL 2500MG PREMIX 250 ML IV SCH (07:04)
[2018-09-09 07:23] LABS: PLATELET ESTIMATE DECREASED
[2018-09-09 08:30] LABS: BG BASE EXCESS -2.5 mmol/L (-2.0-2.0); BG CARBOXYHEMOGLOBIN 0.2 % (0.5-1.5); BG DEOXYHEMOGLOBIN 1.8 % (0.0-5.0); BG FRACTION INSPIRED OXYGEN 40; BG HCO3 ACT 22.1 mmol/L (22.0-26.0); BG METHEMOGLOBIN 0.2 % (0.0-1.5); BG OXYGEN SATURATION 98.2 % (92.0-98.5); BG OXYHEMOGLOBIN 97.8 % (94.0-97.0); BG PCO2 37.1 mmHg (35.0-45.0); BG PH 7.393 (7.350-7.450); BG PO2 123.6 mmHg (75.0-100.0); BG SAMPLE SITE LEFT RADIAL; BG TIDAL VOLUME(mL) 500 mL; BG TOTAL HEMOGLOBIN 9.9 g/dL (12.0-18.0); BG VENT MODE VENT - A/C; BG VENT RATE 18 set
[2018-09-09] MEDS: PANTOPRAZOLE SODIUM 40 MG/VIAL IV SCH ×2 (09:49→21:23)
[2018-09-09] MEDS: MICAFUNGIN 100 MG in SODIUM CHLORIDE 0.9% 100 ML IV SCH (14:48)
[2018-09-09] MEDS: MEROPENEM 500 MG in SODIUM CHLORIDE 0.9% 50 ML IV SCH (17:36)
[2018-09-09] MEDS: SODIUM CHLORIDE 0.9% 1,000 ML IV SCH (18:48)
[2018-09-09] MEDS ORDERED: ROCURONIUM BROMIDE 10MG/ML VIAL 5ML IV ONE (20:18)
[2018-09-09] MEDS ORDERED: FENTANYL CITRATE/PF 50MCG/ML 2ML VIAL ONE (20:18)
[2018-09-09] MEDS ORDERED: MIDAZOLAM HCL 2 MG/2 ML VIAL ONE (20:18)
[2018-09-10] VITALS (75 sets, daily range): BP systolic 93–152; BP diastolic 45–74
[2018-09-10] MEDS: BLOOD SUGAR DIAGNOSTIC STRIP TEST SCH ×4 (00:17→18:28)
[2018-09-10] MEDS: IPRATROPIUM BROMIDE (0.02%) 0.5MG/2.5ML NEB HHN SCH ×4 (03:50→20:24)
[2018-09-10 05:33] LABS: CHLORIDE 106 mEq/L (98-107)
[2018-09-10 05:34] LABS: HEMATOCRIT. 27.5 % (36.0-48.0); MEAN CORPUSCULAR HEMOGLOBIN 27.8 pg (28.0-32.0); MEAN PLATELET VOLUME 9.7 fl (7.4-10.4); PLATELET 109 x1000/uL (130-400); RED BLOOD CELL COUNT 3.24 mill/uL (4.2-5.4)
[2018-09-10] MEDS: INSULIN LISPRO 100 UNITS/ML SUBCUT SCH ×4 (06:00→18:00)
[2018-09-10 07:35] LABS: PLATELET ESTIMATE SLIGHTLY DECREASED
[2018-09-10 08:14] LABS: BG BASE EXCESS -4.8 mmol/L (-2.0-2.0); BG CARBOXYHEMOGLOBIN 0.4 % (0.5-1.5); BG DEOXYHEMOGLOBIN 2.5 % (0.0-5.0); BG FRACTION INSPIRED OXYGEN 40; BG HCO3 ACT 19.6 mmol/L (22.0-26.0); BG OXYGEN SATURATION 97.5 % (92.0-98.5); BG OXYHEMOGLOBIN 97.1 % (94.0-97.0); BG PCO2 33.5 mmHg (35.0-45.0); BG PH 7.385 (7.350-7.450); BG SAMPLE SITE LEFT RADIAL; BG TIDAL VOLUME(mL) 500 mL; BG TOTAL HEMOGLOBIN 9.6 g/dL (12.0-18.0); BG VENT MODE VENT - A/C; BG VENT RATE 18 set
[2018-09-10] MEDS: PANTOPRAZOLE SODIUM 40 MG/VIAL IV SCH ×2 (08:30→21:24)
[2018-09-10] MEDS: ESMOLOL 2500MG PREMIX 250 ML IV SCH (09:25)
[2018-09-10] MEDS: MICAFUNGIN 100 MG in SODIUM CHLORIDE 0.9% 100 ML IV SCH (15:36)
[2018-09-10] MEDS: MEROPENEM 500 MG in SODIUM CHLORIDE 0.9% 50 ML IV SCH (18:27)
[2018-09-10] MEDS: SODIUM CHLORIDE 0.9% 1,000 ML IV SCH (18:27)
[2018-09-11] VITALS (67 sets, daily range): BP systolic 93–139; BP diastolic 45–112
[2018-09-11] MEDS: IPRATROPIUM BROMIDE (0.02%) 0.5MG/2.5ML NEB HHN SCH ×4 (02:15→19:54)
[2018-09-11 05:41] LABS: HEMATOCRIT. 27.7 % (36.0-48.0); MEAN CORPUSCULAR HEMOGLOBIN 28.1 pg (28.0-32.0); MEAN CORPUSCULAR VOLUME 86.1 fL (81.0-99.0); MEAN PLATELET VOLUME 10.4 fl (7.4-10.4); PLATELET 120 x1000/uL (130-400); RED BLOOD CELL COUNT 3.22 mill/uL (4.2-5.4)
[2018-09-11 05:46] LABS: CHLORIDE 111 mEq/L (98-107)
[2018-09-11] MEDS: INSULIN LISPRO 100 UNITS/ML SUBCUT SCH ×5 (06:00→23:53)
[2018-09-11] MEDS: BLOOD SUGAR DIAGNOSTIC STRIP TEST SCH ×5 (06:30→23:47)
[2018-09-11 07:38] LABS: BG BASE EXCESS -2.8 mmol/L (-2.0-2.0); BG CARBOXYHEMOGLOBIN 0.3 % (0.5-1.5); BG DEOXYHEMOGLOBIN 3.7 % (0.0-5.0); BG HCO3 ACT 20.6 mmol/L (22.0-26.0); BG METHEMOGLOBIN 0.7 % (0.0-1.5); BG OXYGEN SATURATION 96.3 % (92.0-98.5); BG OXYHEMOGLOBIN 95.3 % (94.0-97.0); BG PCO2 30.8 mmHg (35.0-45.0); BG PH 7.444 (7.350-7.450); BG PO2 90.8 mmHg (75.0-100.0); BG SAMPLE SITE RIGHT BRACHIAL; BG TIDAL VOLUME(mL) 500 mL; BG VENT MODE VENT - A/C; BG VENT RATE 16 set
[2018-09-11] MEDS: SODIUM CHLORIDE 0.9% 1,000 ML IV SCH (10:18)
[2018-09-11] MEDS: PANTOPRAZOLE SODIUM 40 MG/VIAL IV SCH ×2 (10:18→20:41)
[2018-09-11 10:20] LABS: PLATELET ESTIMATE DECREASED
[2018-09-11] MEDS: MORPHINE SULFATE 2 MG/ML CPJ (NOT FOR IM USE) IV PRN ×3 (11:22→22:26)
[2018-09-11] MEDS: MICAFUNGIN 100 MG in SODIUM CHLORIDE 0.9% 100 ML IV SCH (15:51)
[2018-09-11] MEDS: MEROPENEM 500 MG in SODIUM CHLORIDE 0.9% 50 ML IV SCH (18:12)
[2018-09-11] MEDS ORDERED: CALCIUM CHLORIDE 1,000 MG in DEXT 5% WATER 90 ML IV SCH (21:00)
[2018-09-12] VITALS (38 sets, daily range): BP systolic 109–151; BP diastolic 58–85
[2018-09-12] MEDS: IPRATROPIUM BROMIDE (0.02%) 0.5MG/2.5ML NEB HHN SCH ×4 (02:02→20:59)
[2018-09-12] MEDS: MORPHINE SULFATE 2 MG/ML CPJ (NOT FOR IM USE) IV PRN ×3 (04:04→14:26)
[2018-09-12] MEDS: SODIUM CHLORIDE 0.9% 1,000 ML IV SCH (05:30)
[2018-09-12] MEDS: INSULIN LISPRO 100 UNITS/ML SUBCUT SCH ×3 (06:00→18:00)
[2018-09-12 06:15] LABS: HEMATOCRIT. 27.1 % (36.0-48.0); HEMOGLOBIN. 8.7 g/dL (12.0-16.0); MEAN CORPUSCULAR HEMOGLOBIN 27.9 pg (28.0-32.0); MEAN CORPUSCULAR VOLUME 86.7 fL (81.0-99.0); MEAN PLATELET VOLUME 10.5 fl (7.4-10.4); PLATELET 139 x1000/uL (130-400); RED BLOOD CELL COUNT 3.12 mill/uL (4.2-5.4); RED CELL DISTRIBUTION WIDTH 17.2 % (11.6-14.6)
[2018-09-12] MEDS: BLOOD SUGAR DIAGNOSTIC STRIP TEST SCH ×3 (06:22→18:00)
[2018-09-12] MEDS: PANTOPRAZOLE SODIUM 40 MG/VIAL IV SCH ×2 (09:42→20:53)
[2018-09-12 11:30] LABS: PLATELET ESTIMATE NORMAL
[2018-09-12] MEDS: MICAFUNGIN 100 MG in SODIUM CHLORIDE 0.9% 100 ML IV SCH (14:15)
[2018-09-12] MEDS: MEROPENEM 500 MG in SODIUM CHLORIDE 0.9% 50 ML IV SCH (17:02)
[2018-09-13] VITALS (12 sets, daily range): BP systolic 120–156; BP diastolic 50–83
[2018-09-13] MEDS: BLOOD SUGAR DIAGNOSTIC STRIP TEST SCH ×4 (00:37→17:14)
[2018-09-13] MEDS: SODIUM CHLORIDE 0.9% 1,000 ML IV SCH (01:00)
[2018-09-13] MEDS: IPRATROPIUM BROMIDE (0.02%) 0.5MG/2.5ML NEB HHN SCH ×4 (02:21→20:49)
[2018-09-13] MEDS: ACETAMINOPHEN 650MG SUPP PR PRN (03:37)
[2018-09-13] MEDS: MORPHINE SULFATE 2 MG/ML CPJ (NOT FOR IM USE) IV PRN ×2 (03:38→21:06)
[2018-09-13] MEDS: INSULIN LISPRO 100 UNITS/ML SUBCUT SCH ×4 (06:00→17:14)
[2018-09-13 07:33] LABS: CHLORIDE 115 mEq/L (98-107)
[2018-09-13 07:39] LABS: PHOSPHORUS 3.5 mg/dL (2.5-4.9)
[2018-09-13 07:46] LABS: INR 2.6; PARTIAL THROMBOPLASTIN TIME 39.2 sec (23.4-31.0); PROTHROMBIN TIME 25.8 sec (9.6-11.0)
[2018-09-13 07:48] LABS: HEMATOCRIT. 26.4 % (36.0-48.0); HEMOGLOBIN. 8.4 g/dL (12.0-16.0); MEAN CORPUSCULAR HEMOGLOBIN 27.6 pg (28.0-32.0); MEAN CORPUSCULAR VOLUME 87.1 fL (81.0-99.0); MEAN PLATELET VOLUME 10.5 fl (7.4-10.4); PLATELET 143 x1000/uL (130-400); RED BLOOD CELL COUNT 3.04 mill/uL (4.2-5.4); RED CELL DISTRIBUTION WIDTH 17.1 % (11.6-14.6)
[2018-09-13 08:23] LABS: BG BASE EXCESS -2.4 mmol/L (-2.0-2.0); BG CARBOXYHEMOGLOBIN 0.1 % (0.5-1.5); BG DEOXYHEMOGLOBIN 2.4 % (0.0-5.0); BG FRACTION INSPIRED OXYGEN 40; BG HCO3 ACT 21.7 mmol/L (22.0-26.0); BG METHEMOGLOBIN 0.2 % (0.0-1.5); BG OXYGEN SATURATION 97.6 % (92.0-98.5); BG OXYHEMOGLOBIN 97.3 % (94.0-97.0); BG PCO2 34.6 mmHg (35.0-45.0); BG PH 7.416 (7.350-7.450); BG PO2 104.6 mmHg (75.0-100.0); BG PRESSURE SUPPORT 12; BG SAMPLE SITE RIGHT BRACHIAL; BG TIDAL VOLUME(mL) 500 mL; BG TOTAL HEMOGLOBIN 8.9 g/dL (12.0-18.0); BG VENT MODE VENT - SIMV; BG VENT RATE 8 set
[2018-09-13] MEDS: PANTOPRAZOLE SODIUM 40 MG/VIAL IV SCH ×2 (08:37→20:24)
[2018-09-13] MEDS ORDERED: PHYTONADIONE 10MG/ML AMP SUBCUT SCH (10:30)
[2018-09-13] MEDS ORDERED: MAGNESIUM 2 G PREMIX 50 ML IV SCH (11:00)
[2018-09-13] MEDS ORDERED: SODIUM CHLORIDE 0.45% 1,000 ML IV SCH ×2 (11:15→11:30)
[2018-09-13 14:19] LABS: PLATELET ESTIMATE NORMAL
[2018-09-13] MEDS: MICAFUNGIN 100 MG in SODIUM CHLORIDE 0.9% 100 ML IV SCH (15:31)
[2018-09-13] MEDS: MEROPENEM 500 MG in SODIUM CHLORIDE 0.9% 50 ML IV SCH (17:15)
[2018-09-13] MEDS ORDERED: FAT EMULSIONS 500 ML IV SCH (21:00)
[2018-09-13] MEDS ORDERED: TOTAL PARENTERAL NUTRITION 1,100 ML IV SCH (21:00)
[2018-09-14] VITALS (12 sets, daily range): BP systolic 135–168; BP diastolic 65–95
[2018-09-14] MEDS: BLOOD SUGAR DIAGNOSTIC STRIP TEST SCH ×4 (00:42→17:46)
[2018-09-14] MEDS: IPRATROPIUM BROMIDE (0.02%) 0.5MG/2.5ML NEB HHN SCH ×4 (02:11→19:51)
[2018-09-14] MEDS: MORPHINE SULFATE 2 MG/ML CPJ (NOT FOR IM USE) IV PRN ×3 (03:59→13:05)
[2018-09-14 04:11] LABS: 25-HYDROXY VITAMIN D3 11 ng/mL (.)
[2018-09-14] MEDS: INSULIN LISPRO 100 UNITS/ML SUBCUT SCH ×4 (06:32→17:46)
[2018-09-14 06:50] LABS: HEMATOCRIT. 27.4 % (36.0-48.0); HEMOGLOBIN. 9.4 g/dL (12.0-16.0); MEAN CORPUSCULAR HEMOGLOBIN 30.2 pg (28.0-32.0); MEAN CORPUSCULAR VOLUME 87.7 fL (81.0-99.0); MEAN PLATELET VOLUME 10.8 fl (7.4-10.4); PLATELET 189 x1000/uL (130-400); RED BLOOD CELL COUNT 3.13 mill/uL (4.2-5.4); RED CELL DISTRIBUTION WIDTH 18.1 % (11.6-14.6)
[2018-09-14 07:28] LABS: PHOSPHORUS 3.9 mg/dL (2.5-4.9)
[2018-09-14] MEDS: ACETAMINOPHEN 325MG TABLET PO PRN (08:20)
[2018-09-14] MEDS: PANTOPRAZOLE SODIUM 40 MG/VIAL IV SCH ×2 (08:26→21:44)
[2018-09-14 14:15] LABS: PLATELET ESTIMATE NORMAL
[2018-09-14] MEDS: MICAFUNGIN 100 MG in SODIUM CHLORIDE 0.9% 100 ML IV SCH (15:29)
[2018-09-14] MEDS: MEROPENEM 500 MG in SODIUM CHLORIDE 0.9% 50 ML IV SCH (18:33)
[2018-09-14] MEDS ORDERED: TOTAL PARENTERAL NUTRITION 1,100 ML IV SCH (21:00)
[2018-09-15] VITALS (12 sets, daily range): BP systolic 92–171; BP diastolic 57–101
[2018-09-15] MEDS: ACETAMINOPHEN 650MG SUPP PR PRN (01:01)
[2018-09-15] MEDS: IPRATROPIUM BROMIDE (0.02%) 0.5MG/2.5ML NEB HHN SCH ×4 (01:58→20:18)
[2018-09-15] MEDS: MORPHINE SULFATE 2 MG/ML CPJ (NOT FOR IM USE) IV PRN (05:41)
[2018-09-15] MEDS: INSULIN LISPRO 100 UNITS/ML SUBCUT SCH ×4 (06:00→17:46)
[2018-09-15] MEDS: BLOOD SUGAR DIAGNOSTIC STRIP TEST SCH ×4 (06:00→17:42)
[2018-09-15 07:00] LABS: INR 1.2
[2018-09-15 07:06] LABS: HEMATOCRIT. 27.9 % (36.0-48.0); HEMOGLOBIN. 8.9 g/dL (12.0-16.0); MEAN CORPUSCULAR HEMOGLOBIN 27.3 pg (28.0-32.0); MEAN CORPUSCULAR VOLUME 85.9 fL (81.0-99.0); MEAN PLATELET VOLUME 9.5 fl (7.4-10.4); PLATELET 146 x1000/uL (130-400); RED BLOOD CELL COUNT 3.25 mill/uL (4.2-5.4)
[2018-09-15 07:32] LABS: CHLORIDE 114 mEq/L (98-107)
[2018-09-15 07:44] LABS: PHOSPHORUS 3.7 mg/dL (2.5-4.9)
[2018-09-15 07:46] LABS: CREATINE KINASE 536 IU/L (26-192)
[2018-09-15] MEDS: PANTOPRAZOLE SODIUM 40 MG/VIAL IV SCH (08:27)
[2018-09-15 08:41] LABS: BG BASE EXCESS -0.5 mmol/L (-2.0-2.0); BG CARBOXYHEMOGLOBIN 0.7 % (0.5-1.5); BG DEOXYHEMOGLOBIN 3.3 % (0.0-5.0); BG FRACTION INSPIRED OXYGEN 40; BG HCO3 ACT 23.6 mmol/L (22.0-26.0); BG METHEMOGLOBIN 0.2 % (0.0-1.5); BG OXYGEN SATURATION 96.7 % (92.0-98.5); BG OXYHEMOGLOBIN 95.8 % (94.0-97.0); BG PCO2 36.6 mmHg (35.0-45.0); BG PH 7.427 (7.350-7.450); BG PO2 90.5 mmHg (75.0-100.0); BG PRESSURE SUPPORT 8; BG SAMPLE SITE RIGHT RADIAL; BG TOTAL HEMOGLOBIN 9.7 g/dL (12.0-18.0); BG VENT MODE VENT - CPAP
[2018-09-15 09:55] LABS: PLATELET ESTIMATE NORMAL
[2018-09-15] MEDS: CLONIDINE HCL 0.1MG/24HR PATCH TD SCH (12:31)
[2018-09-15 12:34] LABS: CLARITY URINE TURBID (CLEAR); COLOR URINE YELLOW (YELLOW); KETONES URINE NEGATIVE (NEGATIVE); LEUKOCYTE ESTERASE URINE 2+ (NEGATIVE); NITRITE URINE NEGATIVE (NEGATIVE); OCCULT BLOOD URINE 3+ (NEGATIVE); PH URINE 5.5 (4.5-8.0); PROTEIN URINE 1+ (NEGATIVE); SPECIFIC GRAVITY URINE 1.012 (1.005-1.030); UROBILINOGEN URINE 0.2 E.U./dL (0.2-1.0)
[2018-09-15] MEDS: MICAFUNGIN 100 MG in SODIUM CHLORIDE 0.9% 100 ML IV SCH (15:09)
[2018-09-15] MEDS: BUDESONIDE 0.5MG/2ML NEB HHN SCH (15:26)
[2018-09-15] MEDS: MEROPENEM 500 MG in SODIUM CHLORIDE 0.9% 50 ML IV SCH (17:42)
[2018-09-15] MEDS ORDERED: TOTAL PARENTERAL NUTRITION 1,400 ML IV SCH (21:00)
[2018-09-16] VITALS (12 sets, daily range): BP systolic 137–178; BP diastolic 74–107
[2018-09-16] MEDS: MORPHINE SULFATE 2 MG/ML CPJ (NOT FOR IM USE) IV PRN ×4 (00:31→21:42)
[2018-09-16] MEDS: ACETAMINOPHEN 650MG SUPP PR PRN (00:32)
[2018-09-16] MEDS: BLOOD SUGAR DIAGNOSTIC STRIP TEST SCH ×5 (00:48→23:54)
[2018-09-16] MEDS: PANTOPRAZOLE SODIUM 40 MG/VIAL IV SCH ×3 (00:48→21:31)
[2018-09-16] MEDS: IPRATROPIUM BROMIDE (0.02%) 0.5MG/2.5ML NEB HHN SCH ×4 (02:01→20:02)
[2018-09-16] MEDS: INSULIN LISPRO 100 UNITS/ML SUBCUT SCH ×4 (06:00→17:28)
[2018-09-16] MEDS: HYDRALAZINE 20MG/ML VIAL IV SCH ×4 (06:03→23:54)
[2018-09-16 06:21] LABS: PHOSPHORUS 3.6 mg/dL (2.5-4.9)
[2018-09-16] MEDS: BUDESONIDE 0.5MG/2ML NEB HHN SCH ×2 (07:42→20:02)
[2018-09-16 08:25] LABS: HEMATOCRIT. 27.4 % (36.0-48.0); HEMOGLOBIN. 8.4 g/dL (12.0-16.0); MEAN CORPUSCULAR HEMOGLOBIN 26.8 pg (28.0-32.0); MEAN CORPUSCULAR VOLUME 87.1 fL (81.0-99.0); MEAN PLATELET VOLUME 10.1 fl (7.4-10.4); PLATELET 134 x1000/uL (130-400); RED BLOOD CELL COUNT 3.15 mill/uL (4.2-5.4); RED CELL DISTRIBUTION WIDTH 17.3 % (11.6-14.6)
[2018-09-16] MEDS ORDERED: MAGNESIUM 2 G PREMIX 50 ML IV NR (10:00)
[2018-09-16] MEDS ORDERED: HYDROMORPHONE HCL/PF 2MG/ML CPJ IV PRN (15:00)
[2018-09-16] MEDS: MEROPENEM 500 MG in SODIUM CHLORIDE 0.9% 50 ML IV SCH ×2 (15:13→17:08)
[2018-09-16] MEDS: MICAFUNGIN 100 MG in SODIUM CHLORIDE 0.9% 100 ML IV SCH (15:29)
[2018-09-16 16:13] LABS: PLATELET ESTIMATE NORMAL
[2018-09-16] MEDS ORDERED: TOTAL PARENTERAL NUTRITION 1,400 ML IV SCH (21:00)
[2018-09-16] MEDS: FAT EMULSIONS 500 ML IV SCH (21:32)
[2018-09-17] VITALS (23 sets, daily range): BP systolic 97–155; BP diastolic 49–88
[2018-09-17] MEDS: INSULIN LISPRO 100 UNITS/ML SUBCUT SCH ×4 (00:19→17:15)
[2018-09-17] MEDS: MORPHINE SULFATE 2 MG/ML CPJ (NOT FOR IM USE) IV PRN ×2 (00:42→20:34)
[2018-09-17] MEDS: IPRATROPIUM BROMIDE (0.02%) 0.5MG/2.5ML NEB HHN SCH ×4 (01:50→20:24)
[2018-09-17] MEDS: HYDRALAZINE 20MG/ML VIAL IV SCH ×3 (06:00→17:46)
[2018-09-17] MEDS: BLOOD SUGAR DIAGNOSTIC STRIP TEST SCH ×3 (06:38→17:14)
[2018-09-17 07:25] LABS: BG BASE EXCESS -1.5 mmol/L (-2.0-2.0); BG CARBOXYHEMOGLOBIN 0.3 % (0.5-1.5); BG DEOXYHEMOGLOBIN 1.8 % (0.0-5.0); BG FRACTION INSPIRED OXYGEN 40; BG HCO3 ACT 22.3 mmol/L (22.0-26.0); BG METHEMOGLOBIN 0.1 % (0.0-1.5); BG OXYGEN SATURATION 98.2 % (92.0-98.5); BG OXYHEMOGLOBIN 97.8 % (94.0-97.0); BG PH 7.435 (7.350-7.450); BG PO2 126.3 mmHg (75.0-100.0); BG PRESSURE SUPPORT 12; BG SAMPLE SITE RIGHT BRACHIAL; BG TIDAL VOLUME(mL) 500 mL; BG TOTAL HEMOGLOBIN 9.7 g/dL (12.0-18.0); BG VENT MODE VENT - SIMV; BG VENT RATE 10 set
[2018-09-17 07:46] LABS: BASOPHILS % 0.6 % (0.0-2.0); EOSINOPHILS % 0.2 % (0.0-5.0); HEMATOCRIT. 23.8 % (36.0-48.0); HEMOGLOBIN. 8.1 g/dL (12.0-16.0); LYMPHOCYTES % 8.9 % (20.0-50.0); MEAN CORPUSCULAR HEMOGLOBIN 29.2 pg (28.0-32.0); MEAN PLATELET VOLUME 9.8 fl (7.4-10.4); MONOCYTES % 5.9 % (2.0-8.0); NEUTROPHILS % 84.4 % (40.0-76.0); PLATELET 122 x1000/uL (130-400); RED BLOOD CELL COUNT 2.77 mill/uL (4.2-5.4); RED CELL DISTRIBUTION WIDTH 17.2 % (11.6-14.6)
[2018-09-17 08:03] LABS: PHOSPHORUS 3.1 mg/dL (2.5-4.9)
[2018-09-17] MEDS ORDERED: LIDOCAINE HCL 1% 20ML VIAL (Pyxis) INJ ONE ×2 (08:26→09:28)
[2018-09-17] MEDS ORDERED: SODIUM BICARBONATE 4% (2.4MEQ) 5ML VIAL IV ONE ×2 (08:26→09:27)
[2018-09-17] MEDS ORDERED: FENTANYL CITRATE/PF 50MCG/ML 2ML VIAL ONE (08:26)
[2018-09-17] MEDS: PANTOPRAZOLE SODIUM 40 MG/VIAL IV SCH ×2 (08:34→20:12)
[2018-09-17] MEDS ORDERED: FENTANYL CITRATE/PF 50MCG/ML 2ML VIAL IV ONE (10:15)
[2018-09-17] MEDS: MICAFUNGIN 100 MG in SODIUM CHLORIDE 0.9% 100 ML IV SCH (14:05)
[2018-09-17] MEDS: BUDESONIDE 0.5MG/2ML NEB HHN SCH ×2 (14:40→20:23)
[2018-09-17] MEDS ORDERED: KCL 20MEQ/100ML PREMIX 100 ML IV NR (15:00)
[2018-09-17] MEDS ORDERED: MAGNESIUM 2 G PREMIX 50 ML IV NR (15:00)
[2018-09-17] MEDS: MEROPENEM 500 MG in SODIUM CHLORIDE 0.9% 50 ML IV SCH (20:12)
[2018-09-17] MEDS ORDERED: TOTAL PARENTERAL NUTRITION 1,400 ML IV SCH (21:00)
[2018-09-18] VITALS (12 sets, daily range): BP systolic 115–138; BP diastolic 60–72
[2018-09-18] MEDS: BLOOD SUGAR DIAGNOSTIC STRIP TEST SCH ×4 (00:34→17:43)
[2018-09-18] MEDS: IPRATROPIUM BROMIDE (0.02%) 0.5MG/2.5ML NEB HHN SCH ×4 (02:17→20:50)
[2018-09-18] MEDS: INSULIN LISPRO 100 UNITS/ML SUBCUT SCH ×4 (06:00→17:43)
[2018-09-18] MEDS: HYDRALAZINE 20MG/ML VIAL IV SCH ×4 (06:14→17:43)
[2018-09-18] MEDS: PANTOPRAZOLE SODIUM 40 MG/VIAL IV SCH ×2 (08:59→21:17)
[2018-09-18] MEDS: MORPHINE SULFATE 2 MG/ML CPJ (NOT FOR IM USE) IV PRN ×2 (12:28→21:17)
[2018-09-18] MEDS: BUDESONIDE 0.5MG/2ML NEB HHN SCH (13:35)
[2018-09-18] MEDS: MICAFUNGIN 100 MG in SODIUM CHLORIDE 0.9% 100 ML IV SCH (15:09)
[2018-09-18] MEDS: MEROPENEM 500 MG in SODIUM CHLORIDE 0.9% 50 ML IV SCH (17:43)
[2018-09-18] MEDS ORDERED: TOTAL PARENTERAL NUTRITION 1,400 ML IV SCH (21:00)
[2018-09-19] VITALS (12 sets, daily range): BP systolic 113–136; BP diastolic 54–76
[2018-09-19] MEDS: HYDRALAZINE 20MG/ML VIAL IV SCH ×5 (00:32→23:33)
[2018-09-19] MEDS: BLOOD SUGAR DIAGNOSTIC STRIP TEST SCH ×5 (00:42→23:32)
[2018-09-19] MEDS: IPRATROPIUM BROMIDE (0.02%) 0.5MG/2.5ML NEB HHN SCH ×4 (03:12→21:09)
[2018-09-19] MEDS: INSULIN LISPRO 100 UNITS/ML SUBCUT SCH ×5 (05:56→23:32)
[2018-09-19 08:01] LABS: BASOPHILS % 0.6 % (0.0-2.0); EOSINOPHILS % 0.6 % (0.0-5.0); HEMATOCRIT. 23.8 % (36.0-48.0); HEMOGLOBIN. 7.6 g/dL (12.0-16.0); MEAN CORPUSCULAR HEMOGLOBIN 27.7 pg (28.0-32.0); MEAN CORPUSCULAR VOLUME 86.5 fL (81.0-99.0); MEAN PLATELET VOLUME 10.5 fl (7.4-10.4); MONOCYTES % 8.9 % (2.0-8.0); NEUTROPHILS % 81.9 % (40.0-76.0); PLATELET 115 x1000/uL (130-400); RED BLOOD CELL COUNT 2.75 mill/uL (4.2-5.4); RED CELL DISTRIBUTION WIDTH 16.8 % (11.6-14.6)
[2018-09-19] MEDS: PANTOPRAZOLE SODIUM 40 MG/VIAL IV SCH ×2 (08:16→20:33)
[2018-09-19 08:53] LABS: CHLORIDE 114 mEq/L (98-107)
[2018-09-19 09:04] LABS: PHOSPHORUS 3.7 mg/dL (2.5-4.9)
[2018-09-19] MEDS ORDERED: MAGNESIUM 2 G PREMIX 50 ML IV NR (11:30)
[2018-09-19] MEDS: MICAFUNGIN 100 MG in SODIUM CHLORIDE 0.9% 100 ML IV SCH (15:38)
[2018-09-19] MEDS: MEROPENEM 500 MG in SODIUM CHLORIDE 0.9% 50 ML IV SCH (17:33)
[2018-09-19] MEDS ORDERED: FUROSEMIDE 20MG/2ML VIAL IVP NR (19:00)
[2018-09-19] MEDS ORDERED: TOTAL PARENTERAL NUTRITION 1,400 ML IV SCH (21:00)
[2018-09-19] MEDS ORDERED: KCL 20MEQ/100ML PREMIX 100 ML IV NR (21:00)
[2018-09-20] VITALS (12 sets, daily range): BP systolic 108–157; BP diastolic 58–79
[2018-09-20] MEDS: IPRATROPIUM BROMIDE (0.02%) 0.5MG/2.5ML NEB HHN SCH ×4 (02:08→21:09)
[2018-09-20] MEDS: HYDRALAZINE 20MG/ML VIAL IV SCH ×4 (06:10→17:48)
[2018-09-20 06:17] LABS: CHLORIDE 112 mEq/L (98-107)
[2018-09-20 06:24] LABS: BASOPHILS % 0.4 % (0.0-2.0); EOSINOPHILS % 0.6 % (0.0-5.0); HEMATOCRIT. 26.4 % (36.0-48.0); HEMOGLOBIN. 8.4 g/dL (12.0-16.0); LYMPHOCYTES % 9.4 % (20.0-50.0); MEAN CORPUSCULAR HEMOGLOBIN 27.7 pg (28.0-32.0); MEAN CORPUSCULAR VOLUME 87.1 fL (81.0-99.0); MEAN PLATELET VOLUME 10.7 fl (7.4-10.4); MONOCYTES % 9.3 % (2.0-8.0); NEUTROPHILS % 80.3 % (40.0-76.0); PLATELET 138 x1000/uL (130-400); RED BLOOD CELL COUNT 3.03 mill/uL (4.2-5.4)
[2018-09-20] MEDS: BLOOD SUGAR DIAGNOSTIC STRIP TEST SCH ×3 (06:27→17:49)
[2018-09-20] MEDS: INSULIN LISPRO 100 UNITS/ML SUBCUT SCH ×3 (06:29→17:49)
[2018-09-20] MEDS: PANTOPRAZOLE SODIUM 40 MG/VIAL IV SCH ×2 (08:20→21:26)
[2018-09-20] MEDS: MORPHINE SULFATE 2 MG/ML CPJ (NOT FOR IM USE) IV PRN (14:51)
[2018-09-20] MEDS: MICAFUNGIN 100 MG in SODIUM CHLORIDE 0.9% 100 ML IV SCH (15:57)
[2018-09-20] MEDS: MEROPENEM 1000MG in NORMAL SALINE 100ML IV SCH (17:48)
[2018-09-20] MEDS: FAT EMULSIONS 500 ML IV SCH (21:27)
[2018-09-20] MEDS: TOTAL PARENTERAL NUTRITION 1,400 ML IV SCH (21:32)
[2018-09-21] VITALS (13 sets, daily range): BP systolic 103–143; BP diastolic 47–76
[2018-09-21] MEDS: HYDRALAZINE 20MG/ML VIAL IV SCH ×5 (00:34→23:45)
[2018-09-21] MEDS: BLOOD SUGAR DIAGNOSTIC STRIP TEST SCH ×5 (00:34→23:47)
[2018-09-21] MEDS: IPRATROPIUM BROMIDE (0.02%) 0.5MG/2.5ML NEB HHN SCH ×4 (02:18→20:51)
[2018-09-21] MEDS: MEROPENEM 1000MG in NORMAL SALINE 100ML IV SCH ×2 (05:40→17:35)
[2018-09-21] MEDS: INSULIN LISPRO 100 UNITS/ML SUBCUT SCH ×5 (05:45→23:47)
[2018-09-21 06:45] LABS: BASOPHILS % 0.8 % (0.0-2.0); EOSINOPHILS % 0.8 % (0.0-5.0); HEMATOCRIT. 26.6 % (36.0-48.0); HEMOGLOBIN. 9.1 g/dL (12.0-16.0); LYMPHOCYTES % 9.9 % (20.0-50.0); MEAN CORPUSCULAR HEMOGLOBIN 30.1 pg (28.0-32.0); MEAN CORPUSCULAR VOLUME 87.6 fL (81.0-99.0); MEAN PLATELET VOLUME 10.7 fl (7.4-10.4); MONOCYTES % 8.5 % (2.0-8.0); PLATELET 174 x1000/uL (130-400); RED BLOOD CELL COUNT 3.04 mill/uL (4.2-5.4); RED CELL DISTRIBUTION WIDTH 16.9 % (11.6-14.6)
[2018-09-21] MEDS: PANTOPRAZOLE SODIUM 40 MG/VIAL IV SCH ×2 (08:21→21:03)
[2018-09-21 10:02] LABS: CHLORIDE 113 mEq/L (98-107)
[2018-09-21 10:08] LABS: PHOSPHORUS 3.5 mg/dL (2.5-4.9)
[2018-09-21] MEDS ORDERED: KCL 20MEQ/100ML PREMIX 100 ML IV SCH (12:00)
[2018-09-21] MEDS ORDERED: MAGNESIUM 2 G PREMIX 50 ML IV SCH (12:00)
[2018-09-21] MEDS: MORPHINE SULFATE 2 MG/ML CPJ (NOT FOR IM USE) IV PRN ×3 (12:50→23:47)
[2018-09-21] MEDS: MICAFUNGIN 100 MG in SODIUM CHLORIDE 0.9% 100 ML IV SCH (14:35)
[2018-09-21] MEDS: TOTAL PARENTERAL NUTRITION 1,400 ML IV SCH (19:58)
[2018-09-21] MEDS ORDERED: TOTAL PARENTERAL NUTRITION 1,800 ML IV SCH (21:00)
[2018-09-22] VITALS (14 sets, daily range): BP systolic 105–158; BP diastolic 51–80
[2018-09-22] MEDS: IPRATROPIUM BROMIDE (0.02%) 0.5MG/2.5ML NEB HHN SCH ×4 (02:17→20:16)
[2018-09-22] MEDS: MORPHINE SULFATE 2 MG/ML CPJ (NOT FOR IM USE) IV PRN ×3 (03:26→19:02)
[2018-09-22] MEDS: INSULIN LISPRO 100 UNITS/ML SUBCUT SCH ×3 (06:00→18:00)
[2018-09-22] MEDS: HYDRALAZINE 20MG/ML VIAL IV SCH ×4 (06:02→21:44)
[2018-09-22] MEDS: MEROPENEM 1000MG in NORMAL SALINE 100ML IV SCH ×2 (06:03→17:55)
[2018-09-22] MEDS: BLOOD SUGAR DIAGNOSTIC STRIP TEST SCH ×3 (06:03→18:11)
[2018-09-22 07:30] LABS: CHLORIDE 114 mEq/L (98-107)
[2018-09-22 07:39] LABS: PHOSPHORUS 3.8 mg/dL (2.5-4.9)
[2018-09-22] MEDS: PANTOPRAZOLE SODIUM 40 MG/VIAL IV SCH ×2 (08:14→21:42)
[2018-09-22] MEDS: CLONIDINE HCL 0.1MG/24HR PATCH TD SCH (08:14)
[2018-09-22 08:37] LABS: BG BASE EXCESS 2.1 mmol/L (-2.0-2.0); BG CARBOXYHEMOGLOBIN 0.3 % (0.5-1.5); BG DEOXYHEMOGLOBIN 1.6 % (0.0-5.0); BG FRACTION INSPIRED OXYGEN 40; BG HCO3 ACT 26.5 mmol/L (22.0-26.0); BG METHEMOGLOBIN 0.3 % (0.0-1.5); BG OXYGEN SATURATION 98.4 % (92.0-98.5); BG OXYHEMOGLOBIN 97.8 % (94.0-97.0); BG PCO2 40.6 mmHg (35.0-45.0); BG PH 7.433 (7.350-7.450); BG PO2 123.3 mmHg (75.0-100.0); BG PRESSURE SUPPORT 12; BG SAMPLE SITE RIGHT BRACHIAL; BG TIDAL VOLUME(mL) 500 mL; BG TOTAL HEMOGLOBIN 7.8 g/dL (12.0-18.0); BG VENT MODE VENT - SIMV; BG VENT RATE 10 set
[2018-09-22 10:24] LABS: BASOPHILS % 0.6 % (0.0-2.0); LYMPHOCYTES % 11.8 % (20.0-50.0); MEAN CORPUSCULAR HEMOGLOBIN 27.8 pg (28.0-32.0); MEAN CORPUSCULAR VOLUME 85.8 fL (81.0-99.0); MEAN PLATELET VOLUME 10.2 fl (7.4-10.4); MONOCYTES % 11.7 % (2.0-8.0); NEUTROPHILS % 74.9 % (40.0-76.0); PLATELET 145 x1000/uL (130-400); RED BLOOD CELL COUNT 2.55 mill/uL (4.2-5.4); RED CELL DISTRIBUTION WIDTH 16.5 % (11.6-14.6)
[2018-09-22 10:28] LABS: HEMATOCRIT. 21.9 % (36.0-48.0); HEMOGLOBIN. 7.1 g/dL (12.0-16.0)
[2018-09-22] MEDS: MICAFUNGIN 100 MG in SODIUM CHLORIDE 0.9% 100 ML IV SCH (15:55)
[2018-09-22] MEDS ORDERED: TOTAL PARENTERAL NUTRITION 1,800 ML IV SCH (21:00)
[2018-09-22] MEDS: DIPHENHYDRAMINE 50MG/ML VIAL IV PRN (21:44)
[2018-09-23] VITALS (10 sets, daily range): BP systolic 111–139; BP diastolic 53–70
[2018-09-23] MEDS: IPRATROPIUM BROMIDE (0.02%) 0.5MG/2.5ML NEB HHN SCH ×4 (01:13→20:48)
[2018-09-23] MEDS: INSULIN LISPRO 100 UNITS/ML SUBCUT SCH ×4 (06:00→17:26)
[2018-09-23 06:22] LABS: BASOPHILS % 0.7 % (0.0-2.0); EOSINOPHILS % 1.9 % (0.0-5.0); HEMATOCRIT. 21.9 % (36.0-48.0); MEAN CORPUSCULAR HEMOGLOBIN 27.9 pg (28.0-32.0); MEAN CORPUSCULAR VOLUME 87.7 fL (81.0-99.0); MEAN PLATELET VOLUME 10.4 fl (7.4-10.4); MONOCYTES % 10.5 % (2.0-8.0); NEUTROPHILS % 72.9 % (40.0-76.0); PLATELET 145 x1000/uL (130-400); RED CELL DISTRIBUTION WIDTH 16.7 % (11.6-14.6)
[2018-09-23] MEDS: BLOOD SUGAR DIAGNOSTIC STRIP TEST SCH ×4 (06:36→17:26)
[2018-09-23] MEDS: HYDRALAZINE 20MG/ML VIAL IV SCH ×3 (06:41→20:09)
[2018-09-23] MEDS: MEROPENEM 1000MG in NORMAL SALINE 100ML IV SCH ×2 (06:41→20:09)
[2018-09-23 06:42] LABS: CHLORIDE 116 mEq/L (98-107)
[2018-09-23 06:48] LABS: PHOSPHORUS 3.4 mg/dL (2.5-4.9)
[2018-09-23] MEDS: MORPHINE SULFATE 2 MG/ML CPJ (NOT FOR IM USE) IV PRN (07:19)
[2018-09-23] MEDS: PANTOPRAZOLE SODIUM 40 MG/VIAL IV SCH (09:33)
[2018-09-23] MEDS: ACETAMINOPHEN 325MG TABLET PO PRN ×2 (11:39→12:47)
[2018-09-23] MEDS: MICAFUNGIN 100 MG in SODIUM CHLORIDE 0.9% 100 ML IV SCH (15:55)
[2018-09-23] MEDS ORDERED: VANCOMYCIN 2,000 MG in DEXT 5% WATER 500 ML IV SCH (16:00)
[2018-09-23] MEDS ORDERED: MAGNESIUM 2 G PREMIX 50 ML IV SCH (17:00)
[2018-09-23 17:36] LABS: CLARITY URINE CLOUDY (CLEAR); COLOR URINE YELLOW (YELLOW); KETONES URINE NEGATIVE (NEGATIVE); LEUKOCYTE ESTERASE URINE TRACE (NEGATIVE); NITRITE URINE NEGATIVE (NEGATIVE); OCCULT BLOOD URINE 1+ (NEGATIVE); PH URINE 5.5 (4.5-8.0); PROTEIN URINE TRACE (NEGATIVE); SPECIFIC GRAVITY URINE 1.014 (1.005-1.030)
[2018-09-23] MEDS ORDERED: EPOETIN ALFA 10000UNITS/ML VIAL SUBCUT SCH (21:00)
[2018-09-23] MEDS ORDERED: TOTAL PARENTERAL NUTRITION 1,800 ML IV SCH (21:00)
[2018-09-24] MEDS ORDERED: VANCOMYCIN 1 G PREMIX 200 ML IV SCH (12:00)
== END 2018-09-23 22:20 | DRG 3 ==
LOC: ER 19:53 → 5EST 22:37 → EDBEDREQTM 22:41 → EDBEDREQ 22:41 → ENRESERV 09-01 07:03 → MICUSO 09-01 19:51 → 5EST 09-12 20:06
PROVIDERS: ADMIT Internal Medicine; ATTEND Internal Medicine
PROC: 0DU907Z Supplement Duodenum with Autologous Tissue Substitute, Open Approach (ICD-10-PCS; 2018-09-01)
PROC: 5A1955Z Respiratory Ventilation, Greater than 96 Consecutive Hours (ICD-10-PCS; 2018-09-02)
PROC: 05HY33Z Insertion of Infusion Device into Upper Vein, Percutaneous Approach (ICD-10-PCS; 2018-09-02)
PROC: B54MZZA Ultrasonography of Right Upper Extremity Veins, Guidance (ICD-10-PCS; 2018-09-02)
PROC: 0BH17EZ Insertion of Endotracheal Airway into Trachea, Via Natural or Artificial Opening (ICD-10-PCS; 2018-09-02)
PROC: 02HV33Z Insertion of Infusion Device into Superior Vena Cava, Percutaneous Approach (ICD-10-PCS; 2018-09-03)
PROC: B5181ZA Fluoroscopy of Superior Vena Cava using Low Osmolar Contrast, Guidance (ICD-10-PCS; 2018-09-03)
PROC: B548ZZA Ultrasonography of Superior Vena Cava, Guidance (ICD-10-PCS; 2018-09-03)
PROC: 5A1D70Z Performance of Urinary Filtration, Intermittent, Less than 6 Hours Per Day (ICD-10-PCS; 2018-09-05)
PROC: 5A1D70Z Performance of Urinary Filtration, Intermittent, Less than 6 Hours Per Day (ICD-10-PCS; 2018-09-06)
PROC: 5A1D70Z Performance of Urinary Filtration, Intermittent, Less than 6 Hours Per Day (ICD-10-PCS; 2018-09-07)
PROC: 5A1D70Z Performance of Urinary Filtration, Intermittent, Less than 6 Hours Per Day (ICD-10-PCS; 2018-09-08)
PROC: 0B110F4 Bypass Trachea to Cutaneous with Tracheostomy Device, Open Approach (ICD-10-PCS; principal; 2018-09-09)
PROC: 0GBJ0ZZ Excision of Thyroid Gland Isthmus, Open Approach (ICD-10-PCS; 2018-09-09)
PROC: 5A1D70Z Performance of Urinary Filtration, Intermittent, Less than 6 Hours Per Day (ICD-10-PCS; 2018-09-09)
PROC: 5A1D70Z Performance of Urinary Filtration, Intermittent, Less than 6 Hours Per Day (ICD-10-PCS; 2018-09-11)
PROC: 079P30Z Drainage of Spleen with Drainage Device, Percutaneous Approach (ICD-10-PCS; 2018-09-17)
PROC: 30233N1 Transfusion of Nonautologous Red Blood Cells into Peripheral Vein, Percutaneous Approach (ICD-10-PCS; 2018-09-22)
DX: A41.9 Sepsis, unspecified organism (principal); K26.5 Chronic or unspecified duodenal ulcer with perforation; G92 Toxic encephalopathy; E43 Unspecified severe protein-calorie malnutrition; R65.21 Severe sepsis with septic shock; K72.00 Acute and subacute hepatic failure without coma; N17.0 Acute kidney failure with tubular necrosis; K65.1 Peritoneal abscess; I63.81 Other cerebral infarction due to occlusion or stenosis of small artery; J96.20 Acute and chronic respiratory failure, unspecified whether with hypoxia or hypercapnia; K86.1 Other chronic pancreatitis; R18.8 Other ascites; B49 Unspecified mycosis; E87.0 Hyperosmolality and hypernatremia; F11.20 Opioid dependence, uncomplicated; I47.1 Supraventricular tachycardia; J98.11 Atelectasis; K56.7 Ileus, unspecified; Z99.11 Dependence on respirator [ventilator] status; J93.82 Other air leak; T81.30XA Disruption of wound, unspecified, initial encounter; E78.00 Pure hypercholesterolemia, unspecified; K74.60 Unspecified cirrhosis of liver; I25.10 Atherosclerotic heart disease of native coronary artery without angina pectoris; K66.8 Other specified disorders of peritoneum; K57.30 Diverticulosis of large intestine without perforation or abscess without bleeding; I48.0 Paroxysmal atrial fibrillation; M19.90 Unspecified osteoarthritis, unspecified site; D69.6 Thrombocytopenia, unspecified; D73.3 Abscess of spleen; I11.0 Hypertensive heart disease with heart failure; E11.9 Type 2 diabetes mellitus without complications; L89.150 Pressure ulcer of sacral region, unstageable; E87.8 Other disorders of electrolyte and fluid balance, not elsewhere classified; B96.20 Unspecified Escherichia coli [E. coli] as the cause of diseases classified elsewhere; E55.9 Vitamin D deficiency, unspecified; E66.01 Morbid (severe) obesity due to excess calories; E78.5 Hyperlipidemia, unspecified; E83.42 Hypomagnesemia; E83.51 Hypocalcemia; Y83.8 Other surgical procedures as the cause of abnormal reaction of the patient, or of later complication, without mention of misadventure at the time of the procedure; I50.9 Heart failure, unspecified; E86.0 Dehydration; E86.1 Hypovolemia; E87.5 Hyperkalemia; G89.4 Chronic pain syndrome; J43.9 Emphysema, unspecified; K80.20 Calculus of gallbladder without cholecystitis without obstruction; Z85.828 Personal history of other malignant neoplasm of skin; Z88.6 Allergy status to analgesic agent; Z99.2 Dependence on renal dialysis; Z87.891 Personal history of nicotine dependence; Z68.35 Body mass index [BMI] 35.0-35.9, adult; Z91.040 Latex allergy status; Z79.82 Long term (current) use of aspirin; Z78.1 Physical restraint status; Y92.89 Other specified places as the place of occurrence of the external cause
CPT/HCPCS: 36415; 36600; 70551; 71045; 74176; 76770; 76857; 76937; 77012; 80048; 80305; 80320; 82140; 82306; 82330; 82375; 82465; 82550; 82553; 82570; 82805; 82962; 83605; 83721; 83735; 83880; 83970; 84100; 84134; 84300; 84443; 84478; 84484; 84540; 85379; 86078; 86803; 86850; 86900; 86920; 87070; 87075; 87077; 87106; 87186; 87340; 93005; 93306; 93970; 94003; 94640; 95816; 96361; 96374; 99285; A6261; C1725; C1729; C1752; C1769; C9113; J0330; J0360; J0610; J0692; J0885; J1170; J1200; J1644; J1650; J1815; J1940; J1956; J2150; J2185; J2248; J2250; J2270; J2370; J2405; J2543; J2704; J3010; J3370; J3430; J3475; J3480; J3490; J7030; J7040; J7050; J7060; J7620; J7626; P9016; P9047; A4315; G0480

== ENCOUNTER 2019-04-28 23:28 | Inpatient (IN) | payer MEDICARE, OTHER ==
[~2019-04-28] VITALS: Ht 167.6 cm; Wt 59.9 kg
[~2019-04-28 23:28] MED LIST changes: -ASPI-1393 MT; +ASPI-1497 MT; +SIMV-46 MT; -SIMV40TA5 MT
[2019-04-29 00:12] LABS: BASOPHILS % 0.2 % (0.0-2.0); EOSINOPHILS % 1.5 % (0.0-5.0); HEMATOCRIT. 41.1 % (36.0-48.0); HEMOGLOBIN. 13.6 g/dL (12.0-16.0); LYMPHOCYTES % 28.3 % (20.0-50.0); MEAN CORPUSCULAR HEMOGLOBIN 29.3 pg (28.0-32.0); MEAN CORPUSCULAR VOLUME 88.5 fL (81.0-99.0); MEAN PLATELET VOLUME 8.8 fl (7.4-10.4); MONOCYTES % 4.2 % (2.0-8.0); NEUTROPHILS % 65.8 % (40.0-76.0); PLATELET 148 x1000/uL (130-400); RED BLOOD CELL COUNT 4.64 mill/uL (4.2-5.4); RED CELL DISTRIBUTION WIDTH 15.9 % (11.6-14.6)
[2019-04-29] MEDS ORDERED: CLOPIDOGREL 75MG TABLET PO ONE (00:15)
[2019-04-29 00:16] LABS: PROTHROMBIN TIME 10.5 sec (9.6-11.0)
[2019-04-29 00:19] LABS: CHLORIDE 109 mEq/L (98-107)
[2019-04-29 00:25] LABS: ETHANOL BLOOD < 10 mg/dL
[2019-04-29 00:26] LABS: LDL CHOLESTEROL 113 mg/dL (5-100)
[2019-04-29 00:46] LABS: CLARITY URINE CLEAR (CLEAR); COLOR URINE YELLOW (YELLOW); KETONES URINE NEGATIVE (NEGATIVE); LEUKOCYTE ESTERASE URINE 2+ (NEGATIVE); NITRITE URINE NEGATIVE (NEGATIVE); OCCULT BLOOD URINE NEGATIVE (NEGATIVE); PROTEIN URINE TRACE (NEGATIVE); SPECIFIC GRAVITY URINE 1.022 (1.005-1.030); UROBILINOGEN URINE 0.2 E.U./dL (0.2-1.0)
[2019-04-29 01:16] LABS: *AMPHETAMINES SCREEN URINE NEGATIVE (NEGATIVE); *BARBITURATES SCREEN URINE NEGATIVE (NEGATIVE); *BENZODIAZEPINES SCREEN URINE NEGATIVE (NEGATIVE); CANNABINOID URINE SCREEN NEGATIVE (NEGATIVE)
[2019-04-29 01:17] LABS: *COCAINE SCREEN URINE NEGATIVE (NEGATIVE); METHADONE URINE SCREEN NEGATIVE (NEGATIVE); OPIATES URINE SCREEN NEGATIVE (NEGATIVE); PHENCYCLIDINE URINE SCREEN NEGATIVE (NEGATIVE)
[2019-04-29] MEDS ORDERED: CEFTRIAXONE 1 G PREMIX 50 ML IV SCH (02:12)
[2019-04-29] MEDS ORDERED: IOHEXOL-350 100 ML BOTTLE ONE ×2 (03:04→03:07)
[2019-04-29] MEDS ORDERED: ONDANSETRON HCL 4MG/2ML INJ IV PRN (09:00)
[2019-04-29] MEDS ORDERED: ZOLPIDEM TARTRATE 5MG TABLET PO PRN (09:00)
[2019-04-29] MEDS ORDERED: MAGNESIUM/ALUMINUM HYDROXIDE/SIMETHICONE 30ML UDC PO PRN (09:00)
[2019-04-29] MEDS ORDERED: MVI, ADULT NO.1 10 ML, FOLIC ACID 1 MG, THIAMINE HCL 100 MG in SODIUM CHLORIDE 0.9% 1,0... IV SCH ×4 (09:00)
[2019-04-29] MEDS ORDERED: DIPHENHYDRAMINE 50MG/ML VIAL IV PRN (09:00)
[2019-04-29] MEDS: ACETAMINOPHEN 325MG TABLET PO PRN (10:57)
[2019-04-29] MEDS ORDERED: ENOXAPARIN 40MG/0.4ML SYR SUBCUT NR (11:15)
[2019-04-29 14:15] VITALS: BP 136/68
[2019-04-29 16:00] VITALS: BP 161/71
[2019-04-29 20:00] VITALS: BP 143/62
[2019-04-29] MEDS: ATORVASTATIN CALCIUM 40MG TABLET PO SCH (20:37)
[2019-04-29] MEDS: PANTOPRAZOLE 40MG DR TABLET PO SCH (20:37)
[2019-04-30] VITALS: BP 117/65
[2019-04-30] MEDS: ACETAMINOPHEN 325MG TABLET PO PRN ×2 (01:17→21:19)
[2019-04-30 04:00] VITALS: BP 128/66
[2019-04-30 08:00] VITALS: BP 134/42
[2019-04-30] MEDS: ENOXAPARIN 40MG/0.4ML SYR SUBCUT SCH (09:00)
[2019-04-30] MEDS: PANTOPRAZOLE 40MG DR TABLET PO SCH ×2 (10:02→21:15)
[2019-04-30 12:00] VITALS: BP 122/62
[2019-04-30 16:00] VITALS: BP 133/72
[2019-04-30 20:00] VITALS: BP 121/60
[2019-04-30] MEDS: ATORVASTATIN CALCIUM 40MG TABLET PO SCH (21:15)
[2019-05-01 00:14] VITALS: BP 112/54
[2019-05-01 08:00] VITALS: BP 151/51
[2019-05-01] MEDS: PANTOPRAZOLE 40MG DR TABLET PO SCH (08:14)
[2019-05-01] MEDS: ENOXAPARIN 40MG/0.4ML SYR SUBCUT SCH (08:14)
[2019-05-01 10:51] VITALS: BP 117/70
[2019-05-01 12:00] VITALS: BP 120/73
== END 2019-05-01 12:05 | disposition home or self-care (01) | DRG 65 ==
LOC: ER 23:28 → 7WST 04-29 02:10 → EDBEDREQTM 04-29 02:15 → EDBEDREQ 04-29 02:15 → EDBEDREQSVC 04-29 02:15 → EDBEDREQDT 04-29 02:15 → ENRESERV 04-29 12:19
PROVIDERS: ADMIT Internal Medicine; ATTEND Internal Medicine
DX: I63.9 Cerebral infarction, unspecified (principal); G93.40 Encephalopathy, unspecified; R47.01 Aphasia; E78.00 Pure hypercholesterolemia, unspecified; E78.5 Hyperlipidemia, unspecified; F03.90 Unspecified dementia, unspecified severity, without behavioral disturbance, psychotic disturbance, mood disturbance, and anxiety; I10 Essential (primary) hypertension; M19.90 Unspecified osteoarthritis, unspecified site; M47.812 Spondylosis without myelopathy or radiculopathy, cervical region; E11.9 Type 2 diabetes mellitus without complications; Z74.01 Bed confinement status; Z79.82 Long term (current) use of aspirin; Z79.899 Other long term (current) drug therapy; Z85.828 Personal history of other malignant neoplasm of skin; Z87.11 Personal history of peptic ulcer disease; Z88.6 Allergy status to analgesic agent; Z91.040 Latex allergy status
CPT/HCPCS: 36415; 70496; 70498; 70551; 71045; 80053; 80305; 80320; 81003; 82962; 83721; 83880; 84484; 85025; 86850; 86900; 93005; 93306; 93970; 96365; 97161; 99291; J0696; J1650; J3411; J3490; J7030; Q9967; G0480

== ENCOUNTER 2019-08-12 23:34 | Emergency (ER) | payer OTHER, MEDICARE ==
[~2019-08-12] VITALS: Ht 170.2 cm; Wt 100.0 kg
[2019-08-12] MEDS ORDERED: LEVETIRACETAM 1000MG/100ML 100 ML IV ONE (23:45)
[2019-08-13 00:10] LABS: BASOPHILS % 0.2 % (0.0-2.0); EOSINOPHILS % 1.9 % (0.0-5.0); HEMOGLOBIN. 14.3 g/dL (12.0-16.0); LYMPHOCYTES % 46.9 % (20.0-50.0); MEAN CORPUSCULAR HEMOGLOBIN 29.6 pg (28.0-32.0); MEAN CORPUSCULAR VOLUME 89.1 fL (81.0-99.0); MEAN PLATELET VOLUME 8.9 fl (7.4-10.4); MONOCYTES % 4.2 % (2.0-8.0); NEUTROPHILS % 46.8 % (40.0-76.0); PLATELET 164 x1000/uL (130-400); RED BLOOD CELL COUNT 4.83 mill/uL (4.2-5.4); RED CELL DISTRIBUTION WIDTH 14.1 % (11.6-14.6)
[2019-08-13 00:13] LABS: CHLORIDE 105 mEq/L (98-107)
[2019-08-13 00:17] LABS: ETHANOL BLOOD < 10 mg/dL
[2019-08-13 00:38] LABS: CLARITY URINE CLEAR (CLEAR); COLOR URINE YELLOW (YELLOW); KETONES URINE NEGATIVE (NEGATIVE); LEUKOCYTE ESTERASE URINE 2+ (NEGATIVE); NITRITE URINE NEGATIVE (NEGATIVE); OCCULT BLOOD URINE TRACE (NEGATIVE); PROTEIN URINE 1+ (NEGATIVE); SPECIFIC GRAVITY URINE 1.019 (1.005-1.030)
[2019-08-13 00:55] LABS: *AMPHETAMINES SCREEN URINE NEGATIVE (NEGATIVE); *BARBITURATES SCREEN URINE NEGATIVE (NEGATIVE)
[2019-08-13 00:56] LABS: *BENZODIAZEPINES SCREEN URINE NEGATIVE (NEGATIVE); *COCAINE SCREEN URINE NEGATIVE (NEGATIVE); CANNABINOID URINE SCREEN NEGATIVE (NEGATIVE); METHADONE URINE SCREEN NEGATIVE (NEGATIVE); OPIATES URINE SCREEN NEGATIVE (NEGATIVE); PHENCYCLIDINE URINE SCREEN NEGATIVE (NEGATIVE)
[2019-08-13] MEDS ORDERED: CEFTRIAXONE 1 G PREMIX 50 ML IV ONE (01:30)
[2019-08-13] MEDS ORDERED: POTASSIUM CHLORIDE 20MEQ TABLET SR PO ONE (01:30)
[2019-08-13 02:47] VITALS: BP 145/77
== END 2019-08-13 02:59 | disposition short-term general hospital (02) ==
LOC: ER 23:34 → CANBEDREQ 08-13 03:17
DX: G40.909 Epilepsy, unspecified, not intractable, without status epilepticus (principal); N30.00 Acute cystitis without hematuria; E87.6 Hypokalemia; G93.49 Other encephalopathy; E11.9 Type 2 diabetes mellitus without complications; I10 Essential (primary) hypertension; E78.00 Pure hypercholesterolemia, unspecified; J44.9 Chronic obstructive pulmonary disease, unspecified; Z79.899 Other long term (current) drug therapy; F03.90 Unspecified dementia, unspecified severity, without behavioral disturbance, psychotic disturbance, mood disturbance, and anxiety
CPT/HCPCS: 36415; 70450; 71045; 80053; 80305; 80320; 81003; 82962; 85025; 93005; 96365; 96367; 99285; J0696; J1953; G0480

== ENCOUNTER 2022-04-27 16:39 | Inpatient (IN) | payer MEDICARE, OTHER ==
[~2022-04-27] VITALS: Ht 165.1 cm; Wt 85.3 kg
[2022-04-27] MEDS ORDERED: VANCOMYCIN 1G PREMIX 200 ML IV SCH (17:45)
[2022-04-27] MEDS ORDERED: PIPERACILLIN/TAZOBACTAM 3.375GM/50ML PREMIX IV ONE (17:45)
[2022-04-27] MEDS ORDERED: ACETAMINOPHEN 325MG SUPP PR NR (17:49)
[2022-04-27] MEDS ORDERED: PIPERACILLIN/TAZ 3.375G PREMIX 50 ML IV NR (18:01)
[2022-04-27 18:57] LABS: BASOPHILS % 0.4 % (0.0-2.0); HEMATOCRIT. 45.6 % (36.0-48.0); HEMOGLOBIN. 15.1 g/dL (12.0-16.0); LYMPHOCYTES % 16.5 % (20.0-50.0); MEAN CORPUSCULAR HEMOGLOBIN 29.3 pg (28.0-32.0); MEAN CORPUSCULAR VOLUME 88.4 fL (81.0-99.0); MONOCYTES % 14.4 % (2.0-8.0); NEUTROPHILS % 68.7 % (40.0-76.0); RED BLOOD CELL COUNT 5.16 mill/uL (4.2-5.4); RED CELL DISTRIBUTION WIDTH 14.5 % (11.6-14.6)
[2022-04-27 19:02] LABS: CHLORIDE 106 mEq/L (98-107)
[2022-04-27 19:12] LABS: CLARITY URINE CLOUDY (CLEAR); COLOR URINE DARK YELLOW (YELLOW); KETONES URINE TRACE (NEGATIVE); LEUKOCYTE ESTERASE URINE 1+ (NEGATIVE); NITRITE URINE POSITIVE (NEGATIVE); OCCULT BLOOD URINE 2+ (NEGATIVE); PH URINE 5.5 (4.5-8.0); PROTEIN URINE 2+ (NEGATIVE); SPECIFIC GRAVITY URINE 1.023 (1.005-1.030)
[2022-04-27 19:17] LABS: ETHANOL BLOOD < 10 mg/dL
[2022-04-27 19:25] LABS: *AMPHETAMINES SCREEN URINE NEGATIVE (NEGATIVE); *BARBITURATES SCREEN URINE NEGATIVE (NEGATIVE); *BENZODIAZEPINES SCREEN URINE NEGATIVE (NEGATIVE); *COCAINE SCREEN URINE NEGATIVE (NEGATIVE); CANNABINOID URINE SCREEN NEGATIVE (NEGATIVE); METHADONE URINE SCREEN NEGATIVE (NEGATIVE); OPIATES URINE SCREEN NEGATIVE (NEGATIVE); PHENCYCLIDINE URINE SCREEN NEGATIVE (NEGATIVE)
[2022-04-27] MEDS ORDERED: DIPHENHYDRAMINE 50MG/ML VIAL IV PRN (19:45)
[2022-04-27] MEDS ORDERED: IPRATROPIUM/ALBUTEROL 0.5-3(2.5)MG/3ML NEB NEB PRN (19:45)
[2022-04-27] MEDS ORDERED: ONDANSETRON HCL 4MG/2ML INJ IV PRN (19:45)
[2022-04-27] MEDS ORDERED: ACETAMINOPHEN 650MG SUPP PR PRN ×2 (19:45)
[2022-04-27] MEDS ORDERED: LEVOFLOXACIN 500MG PREMIX 100 ML IV SCH (20:00)
[2022-04-27 20:37] LABS: MEAN PLATELET VOLUME 10.6 fl (7.4-10.4); PLATELET 100 x1000/uL (130-400)
[2022-04-27 21:00] VITALS: BP 113/69
[2022-04-27] MEDS ORDERED: ALBUTEROL (0.083%) 2.5MG/3ML NEB HHN PRN (22:30)
[2022-04-27] MEDS ORDERED: IPRATROPIUM BROMIDE (0.02%) 0.5MG/2.5ML NEB HHN PRN (22:30)
[2022-04-27] MEDS ORDERED: NALOXONE HCL 0.4MG/ML VIAL IV PRN (22:30)
[2022-04-27] MEDS: FAMOTIDINE 20MG/2ML VIAL IV SCH (22:39)
[2022-04-27] MEDS: ENOXAPARIN 40MG/0.4ML SYR SUBCUT SCH (22:39)
[2022-04-27] MEDS: SODIUM CHLORIDE 0.9% 1,000 ML IV SCH (22:40)
[2022-04-27] MEDS: LEVOFLOXACIN 500MG PREMIX 100 ML IV SCH (22:53)
[2022-04-28 00:13] VITALS: BP 113/53
[2022-04-28 04:00] VITALS: BP 99/59
[2022-04-28] MEDS: SODIUM CHLORIDE 0.9% 1,000 ML IV SCH ×2 (05:38→15:16)
[2022-04-28] MEDS ORDERED: DEXTROSE 50% WATER 50ML SYRINGE IV PRN (07:00)
[2022-04-28] MEDS: BLOOD SUGAR DIAGNOSTIC STRIP TEST SCH ×4 (07:37→21:00)
[2022-04-28] MEDS: INSULIN LISPRO 100 UNITS/ML SUBCUT SCH ×4 (07:37→21:28)
[2022-04-28 08:00] VITALS: BP 103/55
[2022-04-28] MEDS: FAMOTIDINE 20MG/2ML VIAL IV SCH ×2 (10:52→21:33)
[2022-04-28 12:00] VITALS: BP 107/63
[2022-04-28 16:00] VITALS: BP 110/76
[2022-04-28 20:00] VITALS: BP 108/59
[2022-04-28] MEDS: ENOXAPARIN 40MG/0.4ML SYR SUBCUT SCH (21:28)
[2022-04-28] MEDS: LEVOFLOXACIN 500MG PREMIX 100 ML IV SCH (23:55)
[2022-04-29] VITALS (8 sets, daily range): BP systolic 118–139; BP diastolic 54–81
[2022-04-29] MEDS: SODIUM CHLORIDE 0.9% 1,000 ML IV SCH ×3 (00:43→22:55)
[2022-04-29] MEDS: BLOOD SUGAR DIAGNOSTIC STRIP TEST SCH ×4 (06:49→20:20)
[2022-04-29] MEDS: INSULIN LISPRO 100 UNITS/ML SUBCUT SCH ×4 (08:10→20:21)
[2022-04-29] MEDS: FAMOTIDINE 20MG/2ML VIAL IV SCH (09:00)
[2022-04-29] MEDS ORDERED: LEVOFLOXACIN 500MG PREMIX 100 ML IV NR (18:00)
[2022-04-29] MEDS: ENOXAPARIN 40MG/0.4ML SYR SUBCUT SCH (20:14)
[2022-04-29] MEDS: FAMOTIDINE 20MG TABLET PO SCH (20:20)
[2022-04-30] VITALS: BP 136/56
[2022-04-30 04:00] VITALS: BP 128/65
[2022-04-30] MEDS: BLOOD SUGAR DIAGNOSTIC STRIP TEST SCH (06:19)
[2022-04-30] MEDS: INSULIN LISPRO 100 UNITS/ML SUBCUT SCH (06:19)
[2022-04-30 08:00] VITALS: BP 114/52
[2022-04-30] MEDS: SODIUM CHLORIDE 0.9% 1,000 ML IV SCH (08:43)
[2022-04-30] MEDS: FAMOTIDINE 20MG TABLET PO SCH (08:43)
== END 2022-04-30 10:37 | disposition home or self-care (01) | DRG 871 ==
LOC: ER 16:39 → 7WST 17:43
PROVIDERS: ADMIT Internal Medicine; ATTEND Internal Medicine
DX: A41.9 Sepsis, unspecified organism (principal); G93.41 Metabolic encephalopathy; N39.0 Urinary tract infection, site not specified; J44.9 Chronic obstructive pulmonary disease, unspecified; F03.90 Unspecified dementia, unspecified severity, without behavioral disturbance, psychotic disturbance, mood disturbance, and anxiety; E78.00 Pure hypercholesterolemia, unspecified; E11.9 Type 2 diabetes mellitus without complications; J20.9 Acute bronchitis, unspecified; M19.90 Unspecified osteoarthritis, unspecified site; I10 Essential (primary) hypertension; Z86.73 Personal history of transient ischemic attack (TIA), and cerebral infarction without residual deficits; Z85.828 Personal history of other malignant neoplasm of skin; Z88.0 Allergy status to penicillin; Z87.11 Personal history of peptic ulcer disease; Z88.6 Allergy status to analgesic agent
CPT/HCPCS: 36415; 71045; 80053; 80305; 80320; 81003; 82140; 82962; 83036; 84443; 84484; 85025; 93005; 93970; 99291; A6261; J1650; J1815; J1956; J2543; J3370; J3490; G0480

== ENCOUNTER 2022-05-01 10:48 | Inpatient (IN) | payer MEDICARE, OTHER ==
[~2022-05-01] VITALS: Ht 165.1 cm; Wt 70.8 kg
[2022-05-01] MEDS ORDERED: ALBUTEROL (0.083%) 2.5MG/3ML NEB HHN STA (11:28)
[2022-05-01] MEDS ORDERED: IPRATROPIUM BROMIDE (0.02%) 0.5MG/2.5ML NEB HHN STA (11:28)
[2022-05-01] MEDS ORDERED: METHYLPREDNISOLONE SOD SUCC 125 MG/2 ML VIAL IV STA (11:28)
[2022-05-01] MEDS ORDERED: LEVOFLOXACIN 750MG PREMIX 150 ML IV ONE (11:30)
[2022-05-01] MEDS ORDERED: ACETAMINOPHEN 650MG SUPP PR ONE (11:30)
[2022-05-01] MEDS ORDERED: VANCOMYCIN 1G PREMIX 200 ML IV ONE (11:30)
[2022-05-01 12:18] LABS: HEMATOCRIT. 41.4 % (36.0-48.0); HEMOGLOBIN. 13.6 g/dL (12.0-16.0); MEAN CORPUSCULAR HEMOGLOBIN 29.1 pg (28.0-32.0); MEAN CORPUSCULAR VOLUME 88.2 fL (81.0-99.0); PLATELET 103 x1000/uL (130-400); RED BLOOD CELL COUNT 4.69 mill/uL (4.2-5.4); RED CELL DISTRIBUTION WIDTH 14.3 % (11.6-14.6)
[2022-05-01 12:29] LABS: CHLORIDE 109 mEq/L (98-107)
[2022-05-01] MEDS ORDERED: KCL 10MEQ/50ML PREMIX 50 ML IV ONE (12:45)
[2022-05-01 13:05] LABS: PLATELET ESTIMATE DECREASED
[2022-05-01 13:19] LABS: CLARITY URINE CLEAR (CLEAR); COLOR URINE DARK YELLOW (YELLOW); KETONES URINE 1+ (NEGATIVE); LEUKOCYTE ESTERASE URINE NEGATIVE (NEGATIVE); NITRITE URINE NEGATIVE (NEGATIVE); OCCULT BLOOD URINE TRACE (NEGATIVE); PH URINE 5.5 (4.5-8.0); PROTEIN URINE 2+ (NEGATIVE)
[2022-05-01] MEDS ORDERED: SODIUM CHLORIDE 0.9% 1,000 ML IV ONE (14:15)
[2022-05-01] MEDS ORDERED: KCL 10MEQ/50ML PREMIX 50 ML IV NR (17:30)
[2022-05-01] MEDS ORDERED: ONDANSETRON HCL 4MG/2ML INJ IV PRN (18:00)
[2022-05-01] MEDS ORDERED: GUAIFENESIN 200MG/10ML SUGAR FREE UDC PO PRN (18:00)
[2022-05-01] MEDS ORDERED: MAGNESIUM/ALUMINUM HYDROXIDE/SIMETHICONE 30ML UDC PO PRN (18:00)
[2022-05-01] MEDS ORDERED: DOCUSATE SODIUM 100MG CAPSULE PO PRN (18:00)
[2022-05-01] MEDS ORDERED: TRAMADOL 50MG TABLET PO PRN (18:00)
[2022-05-01] MEDS ORDERED: ACETAMINOPHEN 650MG SUPP PR PRN (18:00)
[2022-05-01] MEDS ORDERED: DEXT 5%/0.45% NACL KCL 10MEQ/L 1,000 ML IV SCH (18:00)
[2022-05-01] MEDS ORDERED: NALOXONE HCL 0.4MG/ML VIAL IV PRN (18:15)
[2022-05-01] MEDS ORDERED: POTASSIUM CHLORIDE INJ 10 MEQ in DEXT 5%/0.45% NACL 1000ML 1,000 ML IV SCH (18:30)
[2022-05-01 18:51] LABS: BG BASE EXCESS -4.1 mmol/L (-2.0-2.0); BG CARBOXYHEMOGLOBIN 0.1 % (0.5-1.5); BG DEOXYHEMOGLOBIN 2.5 % (0.0-5.0); BG FRACTION INSPIRED OXYGEN 28; BG HCO3 ACT 18.7 mmol/L (22.0-26.0); BG METHEMOGLOBIN 0.3 % (0.0-1.5); BG OXYGEN SATURATION 97.5 % (92.0-98.5); BG OXYHEMOGLOBIN 97.1 % (94.0-97.0); BG PCO2 28.4 mmHg (35.0-45.0); BG PH 7.437 (7.350-7.450); BG PO2 110.3 mmHg (75.0-100.0); BG SAMPLE SITE RIGHT RADIAL; BG TOTAL HEMOGLOBIN 13.4 g/dL (12.0-18.0); BG VENT MODE NASAL CANNULA
[2022-05-01 20:00] VITALS: BP 135/66
[2022-05-01] MEDS: ENOXAPARIN 40MG/0.4ML SYR SUBCUT SCH (23:18)
[2022-05-01 23:55] VITALS: BP 135/66
[2022-05-02 04:00] VITALS: BP 120/71
[2022-05-02] MEDS: BLOOD SUGAR DIAGNOSTIC STRIP TEST SCH ×3 (05:43→21:39)
[2022-05-02] MEDS ORDERED: DEXTROSE 50% WATER 50ML SYRINGE IV PRN (05:45)
[2022-05-02] MEDS: INSULIN LISPRO 100 UNITS/ML SUBCUT SCH ×4 (06:31→21:00)
[2022-05-02 07:13] LABS: BASOPHILS % 0.1 % (0.0-2.0); HEMATOCRIT. 41.1 % (36.0-48.0); HEMOGLOBIN. 13.4 g/dL (12.0-16.0); LYMPHOCYTES % 13.9 % (20.0-50.0); MEAN CORPUSCULAR HEMOGLOBIN 29.1 pg (28.0-32.0); MEAN CORPUSCULAR VOLUME 89.1 fL (81.0-99.0); MEAN PLATELET VOLUME 9.5 fl (7.4-10.4); MONOCYTES % 6.6 % (2.0-8.0); NEUTROPHILS % 79.4 % (40.0-76.0); PLATELET 88 x1000/uL (130-400); RED BLOOD CELL COUNT 4.61 mill/uL (4.2-5.4); RED CELL DISTRIBUTION WIDTH 14.2 % (11.6-14.6)
[2022-05-02 08:00] VITALS: BP 132/65
[2022-05-02 08:27] LABS: CHLORIDE 108 mEq/L (98-107)
[2022-05-02 08:41] LABS: HDL CHOLESTEROL 53 mg/dL (40-59); LDL CHOLESTEROL 64 mg/dL (5-100); T4 FREE 1.19 ng/dL (0.76-1.46)
[2022-05-02] MEDS ORDERED: CLINDAMYCIN 600 MG in DEXTROSE 5% WATER 50 ML IV SCH (09:00)
[2022-05-02] MEDS: CLINDAMYCIN 600MG PREMIX 50 ML IV SCH ×2 (11:04→21:48)
[2022-05-02 12:00] VITALS: BP 118/63
[2022-05-02 16:00] VITALS: BP 128/73
[2022-05-02 20:00] VITALS: BP 131/71
[2022-05-02] MEDS: DEXT 5%/0.45% NACL 1000ML 1,000 ML IV SCH (21:47)
[2022-05-02] MEDS: ENOXAPARIN 40MG/0.4ML SYR SUBCUT SCH (22:17)
[2022-05-03] VITALS: BP 131/67
[2022-05-03] MEDS: CLINDAMYCIN 600MG PREMIX 50 ML IV SCH ×3 (02:57→18:10)
[2022-05-03 04:00] VITALS: BP 125/61
[2022-05-03] MEDS: INSULIN LISPRO 100 UNITS/ML SUBCUT SCH ×4 (05:31→20:46)
[2022-05-03] MEDS: BLOOD SUGAR DIAGNOSTIC STRIP TEST SCH ×4 (05:31→20:46)
[2022-05-03 08:00] VITALS: BP 117/59
[2022-05-03] MEDS: DEXT 5%/0.45% NACL 1000ML 1,000 ML IV SCH ×2 (09:56→23:04)
[2022-05-03 12:00] VITALS: BP 112/57
[2022-05-03] MEDS ORDERED: MEMA5TAB42 MT (12:51)
[2022-05-03] MEDS ORDERED: PROT40 MT (12:51)
[2022-05-03] MEDS ORDERED: DULO30CA52 MT (12:51)
[2022-05-03] MEDS ORDERED: FURO-152 MT (12:51)
[2022-05-03] MEDS ORDERED: RISP05 MT (12:51)
[2022-05-03 16:00] VITALS: BP 139/67
[2022-05-03 20:00] VITALS: BP 132/67
[2022-05-03] MEDS: ENOXAPARIN 40MG/0.4ML SYR SUBCUT SCH (20:40)
[2022-05-04] VITALS: BP 142/71
[2022-05-04] MEDS: CLINDAMYCIN 600MG PREMIX 50 ML IV SCH ×3 (03:31→20:42)
[2022-05-04 04:00] VITALS: BP 139/74
[2022-05-04] MEDS: BLOOD SUGAR DIAGNOSTIC STRIP TEST SCH ×4 (05:34→20:29)
[2022-05-04] MEDS: INSULIN LISPRO 100 UNITS/ML SUBCUT SCH ×4 (05:35→20:29)
[2022-05-04 07:48] LABS: HEMATOCRIT. 38.5 % (36.0-48.0); MEAN CORPUSCULAR HEMOGLOBIN 29.4 pg (28.0-32.0); MEAN CORPUSCULAR VOLUME 87.4 fL (81.0-99.0); MEAN PLATELET VOLUME 10.5 fl (7.4-10.4); PLATELET 94 x1000/uL (130-400); RED CELL DISTRIBUTION WIDTH 14.2 % (11.6-14.6)
[2022-05-04 08:00] VITALS: BP 115/58
[2022-05-04 08:12] LABS: CHLORIDE 105 mEq/L (98-107)
[2022-05-04 11:16] LABS: T4 FREE 1.62 ng/dL (0.76-1.46)
[2022-05-04 12:00] VITALS: BP 130/54
[2022-05-04] MEDS: DEXT 5%/0.45% NACL 1000ML 1,000 ML IV SCH (12:05)
[2022-05-04 12:47] LABS: PLATELET ESTIMATE DECREASED
[2022-05-04 16:00] VITALS: BP 110/52
[2022-05-04 20:00] VITALS: BP 112/46
[2022-05-04] MEDS: ENOXAPARIN 40MG/0.4ML SYR SUBCUT SCH (20:00)
[2022-05-04] MEDS: LEVOFLOXACIN 750MG PREMIX 150 ML IV SCH (20:28)
[2022-05-05] VITALS: BP 98/52
[2022-05-05] MEDS: DEXT 5%/0.45% NACL 1000ML 1,000 ML IV SCH (01:35)
[2022-05-05 04:00] VITALS: BP 96/51
[2022-05-05] MEDS: BLOOD SUGAR DIAGNOSTIC STRIP TEST SCH ×4 (05:26→20:40)
[2022-05-05] MEDS: INSULIN LISPRO 100 UNITS/ML SUBCUT SCH ×4 (05:27→20:40)
[2022-05-05 06:28] LABS: PROTHROMBIN TIME 11.1 sec (9.6-11.0)
[2022-05-05 06:46] LABS: BASOPHILS % 0.1 % (0.0-2.0); EOSINOPHILS % 1.7 % (0.0-5.0); HEMATOCRIT. 36.4 % (36.0-48.0); HEMOGLOBIN. 12.3 g/dL (12.0-16.0); LYMPHOCYTES % 18.1 % (20.0-50.0); MEAN CORPUSCULAR HEMOGLOBIN 29.1 pg (28.0-32.0); MEAN CORPUSCULAR VOLUME 86.2 fL (81.0-99.0); MEAN PLATELET VOLUME 9.9 fl (7.4-10.4); MONOCYTES % 7.4 % (2.0-8.0); NEUTROPHILS % 72.7 % (40.0-76.0); PLATELET 111 x1000/uL (130-400); RED BLOOD CELL COUNT 4.23 mill/uL (4.2-5.4)
[2022-05-05 07:13] LABS: CHLORIDE 105 mEq/L (98-107)
[2022-05-05] MEDS ORDERED: POTASSIUM CHLORIDE INJ 40 MEQ in DEXT 5% WATER 250 ML IV ONE (07:45)
[2022-05-05 08:00] VITALS: BP 119/68
[2022-05-05] MEDS: KCL 20MEQ/100ML X 2 FOR TOTAL KCL 40MEQ/200ML IV SCH ×2 (10:16→15:31)
[2022-05-05] MEDS: POTASSIUM CHLORIDE 20MEQ TABLET SR PO SCH (11:32)
[2022-05-05 12:00] VITALS: BP 125/67
[2022-05-05] MEDS: ENOXAPARIN 40MG/0.4ML SYR SUBCUT SCH (12:36)
[2022-05-05] MEDS ORDERED: ALBUTEROL 6.7GM HFA INHALER ORI PRN (13:00)
[2022-05-05] MEDS ORDERED: ALBUTEROL 6.7GM HFA INHALER ORI SCH (13:00)
[2022-05-05 16:00] VITALS: BP 138/84
[2022-05-05] MEDS: RISPERIDONE 0.25MG TABLET PO SCH (17:14)
[2022-05-05 20:00] VITALS: BP 134/63
[2022-05-05] MEDS: LEVOFLOXACIN 750MG PREMIX 150 ML IV SCH (20:40)
[2022-05-05] MEDS ORDERED: VANCOMYCIN 1G PREMIX 200 ML IV NR (23:00)
[2022-05-06] VITALS: BP 153/70
[2022-05-06 04:00] VITALS: BP 159/54
[2022-05-06] MEDS: BLOOD SUGAR DIAGNOSTIC STRIP TEST SCH ×4 (05:17→20:39)
[2022-05-06] MEDS: INSULIN LISPRO 100 UNITS/ML SUBCUT SCH ×4 (05:17→21:00)
[2022-05-06 07:17] LABS: BASOPHILS % 0.4 % (0.0-2.0); EOSINOPHILS % 1.9 % (0.0-5.0); HEMATOCRIT. 38.7 % (36.0-48.0); LYMPHOCYTES % 23.9 % (20.0-50.0); MEAN CORPUSCULAR HEMOGLOBIN 29.5 pg (28.0-32.0); MEAN CORPUSCULAR VOLUME 87.8 fL (81.0-99.0); MEAN PLATELET VOLUME 9.8 fl (7.4-10.4); MONOCYTES % 10.4 % (2.0-8.0); NEUTROPHILS % 63.4 % (40.0-76.0); PLATELET 120 x1000/uL (130-400); RED BLOOD CELL COUNT 4.41 mill/uL (4.2-5.4); RED CELL DISTRIBUTION WIDTH 14.5 % (11.6-14.6)
[2022-05-06 08:00] VITALS: BP 140/90
[2022-05-06 08:31] LABS: CHLORIDE 109 mEq/L (98-107)
[2022-05-06] MEDS: FUROSEMIDE 20MG TABLET PO SCH (09:32)
[2022-05-06] MEDS: PANTOPRAZOLE 40MG DR TABLET PO SCH (09:32)
[2022-05-06] MEDS: POTASSIUM CHLORIDE 20MEQ TABLET SR PO SCH (09:32)
[2022-05-06] MEDS: DULOXETINE HCL 30MG DR CAPSULE PO SCH (09:32)
[2022-05-06] MEDS: RISPERIDONE 0.25MG TABLET PO SCH ×2 (09:32→16:51)
[2022-05-06] MEDS: MEMANTINE HCL 5MG TABLET PO SCH (09:32)
[2022-05-06] MEDS: POTASSIUM CHLORIDE 20MEQ/PACKET PO SCH (09:52)
[2022-05-06 12:00] VITALS: BP 144/52
[2022-05-06] MEDS: SERTRALINE HCL 100MG TABLET NG SCH (12:38)
[2022-05-06] MEDS: ENOXAPARIN 40MG/0.4ML SYR SUBCUT SCH (12:38)
[2022-05-06 16:00] VITALS: BP 125/48
[2022-05-06 20:00] VITALS: BP 142/73
[2022-05-06] MEDS: LEVOFLOXACIN 750MG PREMIX 150 ML IV SCH (22:28)
[2022-05-07] VITALS (7 sets, daily range): BP systolic 114–152; BP diastolic 57–90
[2022-05-07] MEDS: INSULIN LISPRO 100 UNITS/ML SUBCUT SCH ×4 (05:33→20:18)
[2022-05-07] MEDS: BLOOD SUGAR DIAGNOSTIC STRIP TEST SCH ×4 (05:33→20:18)
[2022-05-07] MEDS: DULOXETINE HCL 30MG DR CAPSULE PO SCH (09:14)
[2022-05-07] MEDS: RISPERIDONE 0.25MG TABLET PO SCH ×2 (09:14→17:15)
[2022-05-07] MEDS: FUROSEMIDE 20MG TABLET PO SCH (09:14)
[2022-05-07] MEDS: PANTOPRAZOLE 40MG DR TABLET PO SCH (09:14)
[2022-05-07] MEDS: POTASSIUM CHLORIDE 20MEQ/PACKET PO SCH (09:14)
[2022-05-07] MEDS: SERTRALINE HCL 100MG TABLET NG SCH (09:15)
[2022-05-07] MEDS: MEMANTINE HCL 5MG TABLET PO SCH (09:15)
[2022-05-07] MEDS: ENOXAPARIN 40MG/0.4ML SYR SUBCUT SCH (12:08)
[2022-05-07] MEDS: LEVOFLOXACIN 750MG PREMIX 150 ML IV SCH (21:37)
[2022-05-08] MEDS ORDERED: FAMOTIDINE 20MG TABLET PO SCH (09:00)
== END 2022-05-08 00:07 | disposition home health service (06) | DRG 871 ==
LOC: ER 10:48 → EDBEDREQ 11:33 → EDBEDREQSVC 13:26 → EDBEDREQTM 13:28 → EDBEDREQ 15:54 → 7EST 18:04
PROVIDERS: ADMIT Hospitalist; ATTEND Hospitalist
DX: A41.89 Other specified sepsis (principal); G93.41 Metabolic encephalopathy; U07.1 COVID-19; J96.01 Acute respiratory failure with hypoxia; J12.82 Pneumonia due to coronavirus disease 2019; J44.1 Chronic obstructive pulmonary disease with (acute) exacerbation; N39.0 Urinary tract infection, site not specified; E87.20 Acidosis, unspecified; E87.6 Hypokalemia; Z20.822 Contact with and (suspected) exposure to COVID-19; D69.6 Thrombocytopenia, unspecified; F03.90 Unspecified dementia, unspecified severity, without behavioral disturbance, psychotic disturbance, mood disturbance, and anxiety; I11.0 Hypertensive heart disease with heart failure; G40.909 Epilepsy, unspecified, not intractable, without status epilepticus; E78.00 Pure hypercholesterolemia, unspecified; I50.9 Heart failure, unspecified; R62.7 Adult failure to thrive; E11.9 Type 2 diabetes mellitus without complications; R13.10 Dysphagia, unspecified; Z88.0 Allergy status to penicillin; Z68.26 Body mass index [BMI] 26.0-26.9, adult; Z88.8 Allergy status to other drugs, medicaments and biological substances
CPT/HCPCS: 36415; 36600; 71045; 80048; 80053; 80061; 81003; 82375; 82805; 82962; 83036; 83605; 83735; 83880; 84145; 84439; 84443; 84484; 85025; 87426; 92610; 93005; 93970; 94640; 99291; C9803; J1650; J1815; J1956; J2930; J3370; J3480; J3490; J7030